=== PATIENT | female | born 1955 | race Caucasian/White ===

== ENCOUNTER → 2017-08-17 07:48 | Outpatient (CLI) | payer BC, SELFPAY ==
--- NOTE | 2017-08-17 07:53 | US_ITS ---
US abdomen limited HISTORY: ITS.REASON: ALCOHOLIC CIRRHOSIS ORDERING PHYSICIAN: Fredi Carrera MD PATIENT AGE: 62 years COMPARISON: None FINDINGS: Liver: Cirrhotic appearance with enlarged left lobe. No focal lesions demonstrated. Common bile duct is normal at 4 mm. Portal vein size is normal at 6 mm. The direction of the blood flow within the portal vein was difficult to visualize but did appear to be hepatopedal. Pancreas: No obvious mass or ductal dilatation. Right kidney: Unremarkable Gallbladder: No stones, wall thickening, pericholecystic fluid, or biliary dilatation. IMPRESSION: Cirrhotic appearing liver otherwise negative right upper quadrant ultrasound
== END ==
PROVIDERS: Family Provider Family Medicine; PCP Family Medicine; Visit Provider Family Medicine
DX: K70.30 Alcoholic cirrhosis of liver without ascites (principal)
CPT/HCPCS: 76705

== ENCOUNTER → 2018-05-25 08:09 | Outpatient (CLI) | payer BC, SELFPAY ==
--- NOTE | 2018-05-25 08:12 | XR_ITS ---
XR knee LT 4V, XR knee RT 4V Comparison: 04/18/2015 study of left and right knee History: Bilateral knee pain symptoms for many years Technique: Weightbearing AP, lateral and Dias views were performed as well as oblique.-Performed at both right and left knee. ===== LEFT KNEE There are no prominent findings. No acute findings. Moderately large patient. Joint space is adequately maintained with only Borderline narrowing medial compartment. The patellofemoral joint relationships appear normal. When compared to 2015 I see no significant new features. Actually on previous 2015 lateral knee question possible very minor both of lucency along posterior/superior patella which could reflect some minor subchondral cystic or minor osteochondral irregularity at posterior patella, particularly if there is pain patellofemoral joint. No joint effusion. Bones well mineralized. ----IMPRESSION Left knee overall intact with joint space well maintained Only some questionable relative lucency along the posterior superior patella., Question could reflect some minor degenerative changes or subtle osteochondral irregularities posterior patella. ==== RIGHT KNEE no acute findings. No fracture. No joint effusion Only question borderline narrowing at medial compartment compared to the lateral compartment on the standing frontal views.. Also Initially that there may be some very slight lateral position of tibia relative to femur on AP view but I on further review I believe this is likely due to slight rotation as it is not seen on other views. Normal patellofemoral relationships with very early sharp & marginal spur at lateral/and superior margin of patella but may reflect some minor degenerative changes but unimpressive. IMPRESSION Right knee intact, noting only borderline narrowing at the medial compartment on weightbearing views.. . No joint effusion Other minor comments in text
--- NOTE | 2018-05-25 09:58 | XR_ITS ---
XR hip RT 2-3V w/pelvis Ordering Physician: Charles Lott MD Patient Age: 63 years: Female HISTORY: ITS.REASON: right hip pain TECHNIQUE: AP frog-leg view right hip along with AP pelvis COMPARISON :. CT abdomen from 2013 utilized for comparison FINDINGS . Right hip appears normal. The joint space well maintained. Femoral head and neck appear normal contour and density. AP pelvis shows normal appearance at the osseous pelvis with no fracture or acute findings. Symmetrical appearance of the hips. SI joints unremarkable. IMPRESSION: ---- Negative right hip. Negative AP pelvis.
== END ==
PROVIDERS: PCP Family Medicine; Visit Provider Orthopaedic Surgery
DX: M25.561 Pain in right knee (principal); M25.562 Pain in left knee; M25.551 Pain in right hip
CPT/HCPCS: 73502; 73564

== ENCOUNTER 2019-03-24 10:00 | Outpatient (RCR) | payer BC, SELFPAY ==
--- NOTE | 2019-02-15 13:51 | HMH.PTOPWND ---
Rehab Outpt Wound Evaluation Rehab OP Wound Evaluation Start: 02/15/19 13:02 Freq: Status: Active Protocol: Document 02/15/19 13:42 GERMÁN (Rec: 02/15/19 13:51 PHORNE [id number]) Electronically Signed By Salo Garay, PT 02/15/19 13:42 Subjective/History History History Pt is 63 yowf who presents with right posterior, lateral calf wound ~ 1 mo S/P removal of a mole with failed primary intention closure. She reports her sutures were rmoved 10 days after the mole was removed and her wound formed a scab. However, once the scab came off her wound had remained open and has not continued to heal as it should . She has hx of cirrhosis of the liver, hypothyroid, and seasonal allergies. She has been cleasning the wound daily and dressing with petroleum gauze and non-adherent pad as instructed. Subjective Subjective Pt reports no c/o pain, but is tender to palpation in the maximo-wound area. Wound Eval Wound Right Posterior Lateral Calf Wound Type mole removal Is This a Chronic Wound Yes Wound Length (cm) 2.0 Wound Width (cm) 1.2 Wound Bed Appearance Beefy Red,Yellow Percentage Granulated (%) 50 Percentage of Slough (%) 50 Wound Margins Description Well Defined Surrounding Tissue Appearance [place] Edema Type Non-Pitting Edema Degree 1+ Query Text:1+ Trace, Barely Detectable, Rebound 15-30 seconds 2+ Moderate, Slight Indentation, Rebound 10-20 seconds 3+ Deep, Deeper Indentation, Rebound > 30 seconds 4+ Very Deep, Rebound > 60 seconds Drainage Description Serous Drainage Amount Small Wound Topical Solution/Irrigant Saline Irrigant Primary Dressing Silver Dressing Comment opticell Ag Wound Secondary Dressing Type Composite Comment optifoam gentle with border Wound Debridement Method Forceps,Gauze Wound Debridement Amount of Tissue Minimal Removed Wound Debridement Result Healthy Tissue Revealed Dressing Change Patient Tolerance Tolerated Well Wound Problems/I
== END 2019-03-24 10:05 | disposition home or self-care (01) ==
LOC: PT 10:00
PROVIDERS: Visit Provider Emergency Medicine
DX: T81.89XA Other complications of procedures, not elsewhere classified, initial encounter (principal); M79.661 Pain in right lower leg
CPT/HCPCS: 97162; 97597

== ENCOUNTER → 2020-03-15 14:58 | Outpatient (CLI) | payer BC, SELFPAY ==
--- NOTE | 2020-03-15 15:02 | XR_ITS ---
PROCEDURE: XR HAND RT MIN 3V CLINICAL INDICATION: PAIN IN R FINGERS COMPARISON: No exams were available for comparison FINDINGS: No fracture or dislocation. No lytic or blastic change. There is normal mineralization. There are osteoarthritic changes at the 1st metacarpal-carpal junction and at the DIP joint of the 2nd finger. There is a small marginal erosive area along the distal and radial aspect of the proximal phalanx of the 3rd digit. Other findings:None. IMPRESSION: 1. Mild osteoarthritic change. 2. Small lucency at the distal and radial aspect of the proximal phalanx of the 3rd digit which could represent a marginal erosion from erosive arthritic change. Dictated b Madhu Banks MD 03/15/2020 15:45 Madhu Banks MD in [place] 03/15/2020 15:45
== END ==
PROVIDERS: PCP Family Medicine; Visit Provider Family Medicine
DX: M79.644 Pain in right finger(s) (principal)
CPT/HCPCS: 73130

== ENCOUNTER → 2020-05-28 11:15 | Outpatient (CLI) | payer BC, SELFPAY ==
--- NOTE | 2020-05-28 11:37 | ECG_ITS ---
APPROVED REPORT Exam: Resting ECG HR:65 bpm ECG Measurements Heart Rate 65 AXES DC 148 P 14 QRSd 94 QRS -7 QT 398 T 2 QTc 413 Conclusion Normal sinus rhythm Normal ECG Electronically signed by : Cruz Jordan, 06/10/2020 16:38:52
[2020-05-28 11:59] LABS: Basophils % 0.5 % (0.1-2.0); Eosinophils # 0.2 K/mm3 (0.0-0.4); Eosinophils % 2.5 % (0.1-12.0); Hematocrit 41.6 % (37.0-47.0); Hemoglobin 13.7 g/dL (12.2-16.2); Lymphocytes # 1.6 K/mm3 (0.7-4.5); Lymphocytes % 18.7 % (10-50); Mean Corpuscular Hemoglobin 31.7 pg (27.0-31.2); Mean Corpuscular Volume 95.9 fl (81-99); Mean Platelet Volume 7.9 fl (7.4-10.4); Monocytes # 0.4 K/mm3 (0.1-1.0); Monocytes % 5.4 % (1.7-9.3); Neutrophils % 72.8 % (37.0-80.0); Platelet Count 219 K/mm3 (142-424); Red Blood Count 4.33 M/mm3 (4.20-5.40); Red Cell Distribution Width 14.2 % (11.5-17.5); White Blood Count 8.3 K/mm3 (4.8-10.8)
[2020-05-28 12:35] LABS: Chloride 106 mmol/L (98-107); Sodium 139 mmol/L (136-145)
[2020-05-28 12:38] LABS: Blood Urea Nitrogen 11 mg/dl (7-17); Calcium 9.6 mg/dl (8.4-10.2); Carbon Dioxide 24 mmol/L (22.0-30.0); Estimated Glomerular Filt Rate 85 ml/min (>60); GFR (African American) 102 ML/MIN (>60); Glucose 87 mg/dl (74-100)
[2020-05-28 14:12] LABS: Coronavirus 19 IgG Antibody Negative (Negative); Coronavirus 19 IgM Antibody Negative (Negative)
[2020-05-29 10:42] LABS: Cancer Antigen (CA) 125 39.9 U/mL (0.0-38.1)
== END ==
PROVIDERS: Visit Provider Nurse Practitioner Obstetrics & Gynecology
DX: Z01.818 Encounter for other preprocedural examination (principal); N95.0 Postmenopausal bleeding
CPT/HCPCS: 36415; 80048; 85025; 86316; 86328; 93005

== ENCOUNTER 2020-05-29 09:21 | Day surgery (SDC) | payer BC, SELFPAY ==
[2020-05-28 15:31] VITALS: BMI 39.1
[2020-05-29] VITALS (11 sets, daily range): BP systolic 126–150; BP diastolic 56–82; PULSE 65–94; RESP 12–19; TEMP 36.2–43; O2SAT 94–98
--- NOTE | 2020-05-29 12:32 | HMH.ANESCL ---
[facility] Anesthesia Checklist - Structural Data Admitted From: Home Planned Operative Procedure/s: d/c hyst myosure Consent for Planned Operative Procedure(s) Verified: Yes - Additional verifications Anesthesia Reactions: No Hx Blood Transfusions: No Blood Transfusion Reaction: No - Airway Assessment C-Spine Mobility Assessed: Yes TMJ Mobility Assessed: Yes Dentition: Partials - Neurological Assessment Level of Consciousness: Awake, Alert, Appropriate - Anesthesia Plan Anesthesia Risk discussed: Yes Anesthesia Plan: Verified ASA Class: II Anesthesia Type: General [facility] History I have reviewed the patient's past medical history: Yes Medical History: Denies:: Anxiety, Cancer, Diabetes Mellitus Type 1, Diabetes Mellitus Type 2, Internal Pacemaker, MRSA, Seizures *Have you ever received a pneumonia vaccine?: No *Have you received a flu vaccine this season?: No Other Medical History: Reports: Arthritis, Hypothyroidism, Liver Disease. Denies: Blood Transfusion Reaction Anesthesia experience/problems:: none Laterality Cases: Bilateral: Cataract Other Surgeries: Yes: Colonoscopy, . No: Pacemaker Amputation: No Fractures: Yes - *Social History Last grade of school completed: High school graduate Smoking Status: Former smoker Smoking End Date: 1996 Alcohol Intake: never Alcohol Intake Frequency:: other Substance Use Type: denies use *Occupational Status:: retired Housing: house Household Members: spouse *Travel in the last 8 weeks: None - Psychiatric History Pschychiatric History:: Denies:: Anxiety Family Hx:: Thyroid Disorder
--- NOTE | 2020-05-29 14:42 | P.OP_ITS ---
Date of procedure: 05/29/20 Pre-op Diagnosis:: Postmenopausal bleeding Post-op Diagnosis:: Postmenopausal bleeding Procedure performed:: Hysteroscopy with MyoSure Surgeon:: Daryn Knott MD [employer]ION [employer] SET UP WORKER:: Jame Rico Anesthesia: LMA Estimated blood loss (mL): 100 Clinical Note:: She is a 65-year-old lady who complains of bleeding. We had done an endometrial biopsy that showed disordered proliferative growth. She has been on Prometrium for the last month and continued to have heavy bleeding. Ultrasound showed that her endometrium was still thickened at about 2 cm. As result of that we elected perform a hysteroscopy and MyoSure. We wanted to get a good sample of the endometrium to rule out endometrial carcinoma. Operative findings:: She had an anteverted uterus that had a lush endometrium. At the fundus of the uterus it looked like the endometrium was adherent both anterior and posteriorly with possibly a band of adhesions. They were very soft and they were easily taken down with the MyoSure device. Tubal ostia were both seen and appeared normal. The endometrium itself was somewhat erythematous. Operative note:: She was taken the operating room where LMA anesthesia was found be adequate. She was prepped and draped in normal sterile fashion in the lithotomy position. A weighted speculum was placed in the vagina and the anterior lip of the cervix was grasped with a tenaculum. Lopez dilators were used to dilate the cervix to approximately 6 mm. I then inserted the MyoSure hysteroscope into the uterine cavity. The findings were as previously dictated. We then use the MyoSure to take down the adhesions at the fundus. There seem to be some holes in the endometrium possibly consistent with adhesions anterior to posteriorly. These were easily taken down with the MyoSure device. We retrieved a significant amount of tissue with the MyoSure device. I attempted to sample the entire endometrial cavity. At the end of the case the endometrium appeared normal and we could see both tubal ostia easily. The amount of fluid used was approximately 3500 cc. There was an 800 cc deficit. I injected 20 cc of 0.25% ropivacaine at the 3:00, 5:00, 7:00, and 9:00 positions of the cervix. She tolerated the procedure well and was taken to the recovery room in excellent condition. All sponge, instrument and needle counts were correct. The estimated blood loss was approximately 100 cc. Condition: stable Disposition: PACU Specimens:: Endometrial curettings Complications:: None
--- NOTE | 2020-05-29 14:48 | HMH.ANESI ---
[facility] Anesthesia Record Part I Intake, IV Amount: 500 Estimated blood loss (mL): 100 Urine output (mL): 0 Blood Products used (#): none Blood Pressure: 141/62 SaO2: 95 Pulse Rate: 94 Respiratory Rate: 16 Temperature: 97.1 F Patient is:: Awake, Stable Stable to PACU at:: 14:45
--- NOTE | 2020-05-29 17:59 | HMH.ANESII ---
[facility] Anesthesia Record Part II Discharge Time: 15:15 Destination: Surgical Day Care (OP Surgery) PACU nurse assessment reviewed?: Yes Patient Condition:: Good Anesthesia Complications:: None Swallowing reflex intact?: Yes Cyanosis?: No Blood Pressure: 126/72 Pulse Rate: 69 Temperature: 97.8 F Mental Status: Alert & Oriented Pain level:: 0 Nausea and/or vomitting:: None Intake, IV Amount: 0
== END 2020-05-29 15:53 | disposition home or self-care (01) ==
LOC: OR 09:22
PROVIDERS: PCP Family Medicine; Visit Provider Nurse Practitioner Obstetrics & Gynecology
PROC: (CPT 58563; principal; 2020-05-29 11:00)
DX: N93.9 Abnormal uterine and vaginal bleeding, unspecified (principal); N85.4 Malposition of uterus; N85.6 Intrauterine synechiae; M19.90 Unspecified osteoarthritis, unspecified site; E03.9 Hypothyroidism, unspecified; K76.9 Liver disease, unspecified
CPT/HCPCS: 58563; 96374; J2405

== ENCOUNTER → 2021-06-19 15:39 | Outpatient (CLI) | payer BC, SELFPAY ==
--- NOTE | 2021-06-19 15:42 | MM_ITS ---
PROCEDURE: MM DIG MAMM BI DX W/CAD Digital Breast Tomosynthesis Included CLINICAL INDICATION: SCREENING COMPARISON: MG DMSB DIGITAL MAMM-SCREEN BILATERAL from 06/23/2011 MG DMSB DIG MAMM-SCREEN DAPHNE from 03/21/2015 MG DMSB DIG MAMM-SCREEN DAPHNE W/CAD from 04/30/2017 US US BREAST RT COMPLETE from 06/19/2021 TECHNIQUE: Diagnostic mammogram performed along with right breast ultrasound for evaluation of a palpable nodule in the right breast at the 10 o'clock region central FINDINGS: The breasts are heterogeneously dense which may obscure small masses. Right breast: Small nodes are present in the axilla. A 2 x 1.5 cm ill-defined mass is present in the 9-10 o'clock region of the right breast in the central 1/3 of the lateral aspect of the right breast. This has developed since the previous study. There is a cluster of microcalcifications also noted in the central aspect of the right breast slightly lateral in the middle 1/3 of the breast. These calcifications have developed since the previous exam and are slightly suspicious. An additional cluster of calcifications are present in the inferior aspect of the right breast centrally. A well-circumscribed nodule is present in the deep aspect of the right breast seen only on the CC view measuring 1.6 by 1.3 cm. Right breast ultrasound: 2.3 x 1.6 cm hypoechoic masses present in the 10 o'clock region of the right breast corresponding to the new mammographic abnormality. This is the area of patient's palpable concern. The margins are somewhat irregular. The lesion is hypoechoic. This however could be related to the ultrasound technique. There does appear to be some enhanced through transmission of sound. The edges are not well-defined. The lesion is wider than tall. In the 6 o'clock region of the right breast there is an additional hypoechoic nodule which appears solid with some enhanced through transmission of sound. This nodule is fairly well-circumscribed. There are few small cyst in the right breast. Left breast: No malignant appearing mass or malignant-appearing microcalcification. There is some benign-appearing calcifications noted. IMPRESSION: Numerous abnormalities are present involving the right breast. Suspicious nodule at 10 o'clock near the nipple corresponding to the palpable abnormality. Suggest ultrasound-guided FNA to confirm if cystic or solid. If solid mammotome biopsy should be performed. 1.6 cm solid nodule in the deep inferior right breast at 6 o'clock. This may be difficult to do mammotome biopsy due to the location. At least core biopsy is suggested. There are 2 suspicious clusters of calcification in the right breast for which stereotactic biopsy is suggested. Recommend performing ultrasound-guided biopsies initially to be followed by stereotactic biopsies on a separate day. BI-RAD Category: 4 Suspicious Abnormality-Biopsy Considered FOLLOW-UP: BIO Biopsy Recommended (A letter has been sent to the patient regarding results of the study.) Dictated by: Madhu Banks MD 06/19/2021 17:04 Madhu Banks MD in [place] 06/19/2021 17:04
== END ==
PROVIDERS: PCP Family Medicine; Visit Provider Family Medicine
DX: Z12.31 Encounter for screening mammogram for malignant neoplasm of breast (principal)
CPT/HCPCS: 76641; 77062; 77066; G0279

== ENCOUNTER → 2021-07-02 09:48 | Outpatient (CLI) | payer BC, SELFPAY ==
--- NOTE | 2021-07-02 | MM_ITS ---
PROCEDURE: ULTRASOUND MAMMOTOME BIOPSY RIGHT BREAST US FNA BREAST CLINICAL INDICATION: ABN MAMM Two right breast nodules COMPARISON: MG MM DIG MAMM BI DX W/CAD from 06/19/2021 US US BREAST RT COMPLETE from 06/19/2021 MG MM CLIP PLACEMENT RT from 07/02/2021 FINDINGS: Oral sedation utilized with 1 mg alprazolam and 5 mg hydrocodone/325 mg acetaminophen by mouth. Informed consent was obtained and time-out procedure performed. Under aseptic conditions and local anesthesia with 1 percent buffered lidocaine and deeper anesthesia with lidocaine mixed with epinephrine using ultrasound guidance, 1st a FNA was performed of the 10 o'clock nodule without aspiration. Then, a 9 gauge mammotome biopsy needle was inserted into the nodule at 10 o'clock and multiple core biopsies were obtained. A clip was then placed. Patient tolerated the procedure well without evidence mediate complication. Using ultrasound guidance under aseptic technique and local anesthesia with 1 percent buffered lidocaine FNA was attempted of the 6 o'clock region without aspirate obtained. 14 gauge core biopsies x2 were obtained of the nodule at 6 o'clock. The patient tolerated the procedure well without evidence mediate complication. Cytology: FNA of the 10 o'clock lesion, malignant Pathology: 10 o'clock lesion: Invasive ductal carcinoma. Pathology 6 o'clock lesion: Suggestive of epidermal inclusion cyst. Mammo clip placement: Post biopsy changes are present with the clip along the anterior aspect of the 10 o'clock mass. Suspicious microcalcifications are once again noted as previously described. Mildly prominent nodes right axilla. IMPRESSION: Successful and uneventful ultrasound-guided mammotome biopsy of the 10 o'clock lesion of the right breast which demonstrates invasive ductal carcinoma. The nodule at 6 o'clock is suggestive of an epidermal inclusion cyst. Surgical consult suggested. There are 2 clusters of microcalcification in the right breast as previously described for which stereotactic biopsy is also recommended. This should be performed before surgical planning. Dictated by: Madhu Banks MD 07/07/2021 09:45 Madhu Banks MD in [place] 07/07/2021 09:45
== END ==
PROVIDERS: PCP Family Medicine; Visit Provider Family Medicine
DX: R92.8 Other abnormal and inconclusive findings on diagnostic imaging of breast (principal)
CPT/HCPCS: 10005; 19083; 77065; C2618

== ENCOUNTER → 2022-11-10 12:49 | Outpatient (CLI) | payer MEDICARE, BC, SELFPAY ==
--- NOTE | 2022-11-10 | CA_ITS ---
FINAL REPORT TECHNIQUE: Ultrasound images of the deep venous system were obtained from the right groin to the calf veins. CLINICAL HISTORY: Rt lower lateral leg pain FINDINGS: The deep venous system is normally compressible. Normal flow is identified. IMPRESSION: No evidence of right lower extremity DVT. Reviewed, Interpreted and Dictated by Anthony Newman MD Transcribed by Yonatan Jackson Authenticated and [facility]
== END ==
PROVIDERS: PCP Family Medicine; Visit Provider Family Medicine
DX: M79.604 Pain in right leg (principal)
CPT/HCPCS: 93971

== ENCOUNTER 2023-12-23 11:30 | Outpatient (CLI) | payer MEDICARE, BC, SELFPAY ==
--- NOTE | 2023-12-23 11:34 | XR_ITS ---
FINAL REPORT CLINICAL HISTORY: 3 WEEKS OF PAIN IN SWELLING COMPARISON: None FINDINGS: Three views of the right knee reveal no evidence of fracture or dislocation. The bony alignment is normal. Mild degenerative changes present. There is a small joint effusion. No localized soft tissue abnormality is identified. IMPRESSION: Mild degenerative change of the knee, with a small joint effusion. Reviewed, Interpreted and Dictated by Avery Weinberg III, MD Transcribed by Mai Rabago Authenticated and [facility]
== END 2023-12-23 23:59 | disposition home or self-care (01) ==
LOC: RAD 11:31
PROVIDERS: PCP Family Medicine; Visit Provider Family Medicine
DX: M25.561 Pain in right knee (principal)
CPT/HCPCS: 73562

== ENCOUNTER 2024-04-03 07:17 | Outpatient (CLI) | payer MEDICARE, BC, SELFPAY ==
--- NOTE | 2024-04-03 07:30 | CT_ITS ---
FINAL REPORT TECHNIQUE: Thin section axial CT images of the right knee with coronal and sagittal reformats were performed. This study was performed with techniques to keep radiation doses as low as reasonably achievable (ALARA). Individualized dose reduction techniques using automated exposure control or adjustment of mA and/or kV according to the patient''s size were employed. CLINICAL HISTORY: PRe op right tka FINDINGS: There are no fractures. There is moderate medial compartment joint space narrowing. Osteophytes are seen at the medial joint margin and at the undersurface of the patella. There are no masses or fluid collections. There are no soft tissue abnormalities. IMPRESSION: Mild to moderate degenerative change without acute bony abnormality. Reviewed, Interpreted and Dictated by Anthony Newman MD Transcribed by Toshia Lamas Authenticated and [facility]
== END 2024-04-03 23:59 | disposition home or self-care (01) ==
PROVIDERS: PCP Family Medicine; Visit Provider Orthopaedic Surgery
DX: M17.11 Unilateral primary osteoarthritis, right knee (principal)
CPT/HCPCS: 73700

== ENCOUNTER 2024-05-09 12:35 | Outpatient (CLI) | payer MEDICARE, BC, SELFPAY ==
--- NOTE | 2024-05-09 12:54 | ECG_ITS ---
APPROVED REPORT Exam: Resting ECG HR:81 bpm ECG Measurements Heart Rate 81 AXES WV 163 P 22 QRSd 91 QRS -14 QT 381 T 0 QTc 419 Conclusion SINUS RHYTHM MINIMAL VOLTAGE CRITERIA FOR LVH, CONSIDER NORMAL VARIANT [MEETS CRITERIA IN ONE OF: R(aVL), S(V1), R(V5), R(V5/V6)+S(V1)] BORDERLINE ECG UNCONFIRMED REPORT Electronically signed by : Lex Junior MD 05/09/2024 20:48:09
--- NOTE | 2024-05-09 13:13 | XR_ITS ---
FINAL REPORT TECHNIQUE: Chest PA & Lateral CLINICAL HISTORY: Nonspecific cough, former smoker, hx of breast ca COMPARISON: None FINDINGS: 2 views of the chest were performed. The heart size is normal. The mediastinum is within normal limits. There is linear density in the left lung base probably due to scarring or atelectasis. The right lung is clear. There are no pleural effusions. There is no pneumothorax. The bony thorax appears intact. IMPRESSION: Probable scarring or atelectasis left lung base. Reviewed, Interpreted and Dictated by Anthony Newman MD Transcribed by June Brooke Authenticated and [facility]
[2024-05-09 13:26] LABS: Basophils # 0.1 K/mm3 (0-0.2); Basophils % 0.7 % (0.1-2.0); Eosinophils # 0.2 K/mm3 (0.0-0.4); Eosinophils % 2.5 % (0.1-12.0); Hematocrit 39.2 % (37.0-47.0); Hemoglobin 12.7 g/dL (12.2-16.2); Lymphocytes # 1.7 K/mm3 (0.7-4.5); Lymphocytes % 25.4 % (10-50); Mean Corpuscular HGB Conc 32.3 g/dL (31.8-35.4); Mean Corpuscular Hemoglobin 34.4 pg (27.0-31.2); Mean Corpuscular Volume 106.5 fl (81-99); Mean Platelet Volume 8.4 fl (7.4-10.4); Monocytes # 0.4 K/mm3 (0.1-1.0); Monocytes % 5.4 % (1.7-9.3); Neutrophils # 4.5 K/mm3 (1.8-7.8); Platelet Count 135 K/mm3 (142-424); Red Blood Count 3.68 M/mm3 (4.20-5.40); Red Cell Distribution Width 14.3 % (11.5-17.5); White Blood Count 6.8 K/mm3 (4.8-10.8)
[2024-05-09 13:36] LABS: Albumin Level 3.9 g/dl (3.5-5.0); Chloride 104 mmol/L (98-107); Potassium 3.3 mmoL/L (3.5-5.1); Sodium 140 mmol/L (136-145)
[2024-05-09 13:38] LABS: Blood Urea Nitrogen 11 mg/dl (7-17); Estimated Glomerular Filt Rate 72 ml/min (>60); GFR (African American) 87 ML/MIN (>60)
[2024-05-09 13:39] LABS: Alanine Aminotransferase 20 U/L (12-78); Albumin/Globulin Ratio 1.1 (1.1-1.8); Alkaline Phosphatase 90 U/L (38-126); Anion Gap 11.3 mEq/L (5-15); Aspartate Amino Transferase 24 U/L (14-36); Bilirubin,Total 0.8 mg/dl (0.2-1.3); Calcium 9.2 mg/dl (8.4-10.2); Carbon Dioxide 28 mmol/L (22.0-30.0); Globulin 3.6 g/dL (1.3-3.2); Glucose 118 mg/dl (74-100); Total Protein,Serum 7.5 g/dl (6.3-8.2)
== END 2024-05-09 23:59 | disposition home or self-care (01) ==
LOC: PREOP 12:37
PROVIDERS: PCP Family Medicine; Visit Provider Orthopaedic Surgery
DX: M17.11 Unilateral primary osteoarthritis, right knee (principal); Z01.818 Encounter for other preprocedural examination
CPT/HCPCS: 71046; 80053; 85025; 93005

== ENCOUNTER 2024-05-17 12:23 | Observation (INO) | payer MEDICARE, BC, SELFPAY ==
[2024-05-16 11:24] VITALS: BMI 34.7
[2024-05-17] VITALS (20 sets, daily range): BP systolic 95–121; BP diastolic 32–66; PULSE 66–101; RESP 12–18; TEMP 36.4–37.2; O2SAT 93–96; BMI 34.7
[2024-05-17] MEDS: LACTATED RINGERS 1000ML 1,000 ML 100 ML IV ×2 (08:00→18:00)
[2024-05-17] MEDS: CEFAZOLIN SODIUM 2 GM in 0.9 % SODIUM CHLORIDE 100 ML IV (09:00)
--- NOTE | 2024-05-17 09:30 | EXP.ANES.CKL ---
[facility] Disclaimer: The information contained in this section may have been updated after the patient was seen, as this information can be updated by other users. Medical History Urinary tract infection Asthma Menopause Osteoarthritis Hypothyroid History of cataract Breast cancer Surgical History H/O section H/O total hysterectomy H/O eye surgery H/O mastectomy Family History Sister Throat cancer Social History Smoking Status: Former smoker alcohol intake: former substance use type: denies use current occupational status: retired Travel in the last 8 weeks: None household members: spouse housing: house current occupational exposures/hazards: No caffeine: Yes [facility] Anesthesia Checklist Patient Identification Patient Identification: Verbal (Name & ) Structural Data Admitted From: Home Planned Operative Procedure/s: r total knee NPO Status Verified Time NPO: 00:00 Additional verifications Anesthesia Reactions: No Hx Blood Transfusions: No Blood Transfusion Reaction: No Airway Assessment Mallampati Score:: Class II C-Spine Mobility Assessed: Yes TMJ Mobility Assessed: Yes Dentition: Dentures-good fit Neurological Assessment Level of Consciousness: Awake, Alert and Appropriate Anesthesia Plan Anesthesia Risk discussed: Yes Anesthesia Plan: Verified ASA Class: II Anesthesia Type: MAC w/Spinal
[2024-05-17] MEDS: SODIUM CHLORIDE 0.9% IV ×2 (09:35→12:00)
[2024-05-17] MEDS: TRANEXAMIC ACID IV ×2 (09:35→12:00)
--- NOTE | 2024-05-17 11:55 | EXP.OP.NOTE ---
Date of procedure: 05/17/24 Pre-op Diagnosis:: End-stage osteoarthritis right knee Post-op Diagnosis:: Same Procedure performed:: Right total knee arthroplasty Surgeon:: Chin Mrar DO Deputy Manager(s):: Sy VIEIRA FINANCIAL COORDINATOR:: Marko De La Garza Anesthesia: regional and spinal Estimated blood loss (mL): 25 Clinical Note:: Implants Medacta size 3 femur size 3 tibia 10 mm poly size 1 patella, cemented Operative findings:: End-stage osteoarthritis right knee Operative note:: Patient was identified preoperatively. Right knee marked with yes and my initials. Patient then taken to the operating room given spinal anesthesia and then placed upon operating bed after Ybarra catheter was placed. Right lower extremity was prepped and draped normal sterile fashion. Once prepped and draped final operative timeout performed to identify proper patient procedure and extremity. Everyone involved the case agreed. No counter indications beginning. Did receive preoperative antibiotics. Marking pen was used to girish plan incision midline in the knee. Esmarch was used to exsanguinate the extremity pneumatic tourniquet inflated to 300 mmHg. Leg was placed in the foot obregon and the knee was flexed. Skin knife was used incise through skin dissection is taken down to identify the capsule of the knee. Standard medial parapatellar approach was utilized the patella was everted the knee was flexed. The anterior horn of the medial lateral meniscus sacrificed ACL sacrificed. Exposure of the femur was performed by placing retractors with a Hohmann retractor medial and laterally the femoral guide from the Medacta my knee set that was preformed based on CT scan was selected and the distal femoral cutting guide was pinned in the place. The distal femoral cutting osteotomy was performed and gave a nice flat cut the distal femur. The holes from the guide were predrilled and the 4-in-1 cutting block was placed followed by screws in the 4-in-1 cutting block. Anterior and posterior cuts were made anterior posterior chamfer cuts were made bone was removed femoral trial impacted into place with good fit. This was a size 3 femoral trial. Attention was then brought to the tibia. The tibia was subluxed anteriorly the single prong ACL retractor placed retractors medial and lateral placed and the Medacta tibia cutting guide was selected using the model the cartilage was removed to allow for placement of the custom cutting guide directly to the bone. This was then pinned into place and the tibia osteotomy was then performed. The tibial trial was then selected and pinned into place and proper alignment a initial drill followed by the punch was then initiated for final preparation of the tibia. The tibial tray was left in place femoral trial was replaced and the size 10 poly was selected and put into place knee was taken through flexion extension found to be stable Tensions then brought to the patella where the patella cutting guide was utilized for flat osteotomy of the patella lug holes were drilled and a size 1 implant was trialed With the trials in place and good stable range of motion of the knee the trials were removed copious irrigation of the wound performed final implants opened on the back table and cement was mixed. And then I cemented in the tibial component followed by the poly and the femoral component and the patella all excess cement removed the knee was brought in extension allow for the cement to harden. Once this was performed the tourniquet was deflated hemostasis was obtained with electrocautery irrigation repeated. The capsule was closed with a running #1 strata fix suture. Deep layers closed with 0 Vicryl subcutaneous 2-0 Vicryl surgical clips in the skin for closure. Sterile dressing placed from toe to thigh patient waken anesthesia taken recovery stable condition. Condition: stable Disposition: PACU Complications:: None apparent
--- NOTE | 2024-05-17 11:55 | EXP.ANES.I ---
[facility] Anesthesia Record Part I Anesthesia Record I Intake, IV Amount: 1,200 Hydration: Adequate Estimated blood loss (mL): 0 Urine output (mL): 200 Blood Pressure: 98/52 SaO2: 94 Pulse Rate: 92 Airway Patency: Patent Respiratory Rate: 12 Temperature: 97.5 F Patient is:: Awake and Stable Stable to PACU at:: 11:50
--- NOTE | 2024-05-17 12:11 | XR_ITS ---
PROCEDURE INFORMATION: Exam: XR Right Knee Exam date and time: 05/17/2024 4:22 PM Age: 69 years old Clinical indication: Device placement; Joint replacement hardware; Additional info: S/P right total knee TECHNIQUE: Imaging protocol: Radiologic exam of the right knee. Views: 1 or 2 views. COMPARISON: CT KNEE RT WO CON 04/03/2024 7:42 AM FINDINGS: Bones/joints: Right knee prosthesis appears normally aligned. No acute fracture. Osseous alignment appears normal. Soft tissues: Anterior soft tissue swelling and gas compatible with recent surgery. Anterior skin huy noted. IMPRESSION: No unexpected postoperative changes.
[2024-05-17] MEDS: OXYCODONE 5MG W/APAP 325MG TABLET 1 EACH PO ×2 (13:27→18:49)
[2024-05-17] MEDS: KETOROLAC 30MG/ML VIAL 15 MG IV ×2 (14:48→21:02)
[2024-05-17] MEDS: CEFAZOLIN SODIUM 1 GM in 0.9 % SODIUM CHLORIDE 50 ML IV ×2 (16:17→22:41)
--- NOTE | 2024-05-17 17:31 | PC.NURSE ---
pt currently resting supine in bed with legs extended flat. a&ox4. pt had total rt knee replacement surgery today and shannen bandage is applied to the lower extremity. dressing c/d/i. ice packs applied for comfort. pt has been hypotensive since returning from PACU (MAP >65), but vss. post op vitals to be continued into next shift. pt is on RA and tolerating well with sats >90%. purewick is in place. pt has been given pain meds per oct and is eagerly awaiting the next dose. pt aware of medication schedule. next dose time written on board in room. tolerating po intake well, with no complaints of n/v. pt is able to wiggle toes on leg where block was applied for surgery. pt has not been out of bed yet due to numbness in lower extremities. no complaints at this time. call light in reach, bed in low and locked position.
[2024-05-17] MEDS: ASPIRIN 325MG TABLET 325 MG PO (20:50)
[2024-05-18] VITALS: BP 123/61; PULSE 82; RESP 18; TEMP 36.8; O2SAT 94
[2024-05-18] MEDS: OXYCODONE 5MG W/APAP 325MG TABLET 1 EACH PO ×3 (00:23→12:20)
[2024-05-18] MEDS: KETOROLAC 30MG/ML VIAL 15 MG IV ×2 (02:46→10:03)
[2024-05-18 04:00] VITALS: BP 128/62; PULSE 82; RESP 18; TEMP 36.6; O2SAT 93; BMI 38.0
--- NOTE | 2024-05-18 05:34 | PC.NURSE ---
Receiving scheduled pain meds which has controlled pain along with PRN Toradol. Polar pack in place. Taking PO fluids well. No c/o nausea.
[2024-05-18] MEDS: LEVOTHYROXINE 25MCG (0.025MG) TAB 25 MCG PO (06:08)
[2024-05-18 07:09] LABS: Chloride 101 mmol/L (98-107); Potassium 4.1 mmoL/L (3.5-5.1); Sodium 133 mmol/L (136-145)
[2024-05-18 07:12] LABS: Anion Gap 9.1 mEq/L (5-15); Blood Urea Nitrogen 11 mg/dl (7-17); Carbon Dioxide 27 mmol/L (22.0-30.0); Creatinine Clearance Estimated 81 mL/min (50-200); Estimated Glomerular Filt Rate 72 ml/min (>60); GFR (African American) 87 ML/MIN (>60)
[2024-05-18 07:13] LABS: Calcium 8.6 mg/dl (8.4-10.2); Glucose 83 mg/dl (74-100)
--- NOTE | 2024-05-18 07:34 | CARE MANAGER ---
Patient has a mobility impairment that cannot be corrected with a cane but there is a potential for ambulation. YAHIR Ingram
[2024-05-18 07:36] LABS: Basophils # 0.1 K/mm3 (0-0.2); Basophils % 0.6 % (0.1-2.0); Eosinophils # 0.3 K/mm3 (0.0-0.4); Eosinophils % 3.4 % (0.1-12.0); Hematocrit 37.3 % (37.0-47.0); Hemoglobin 12.2 g/dL (12.2-16.2); Lymphocytes # 1.2 K/mm3 (0.7-4.5); Lymphocytes % 14.1 % (10-50); Mean Corpuscular HGB Conc 32.6 g/dL (31.8-35.4); Mean Corpuscular Hemoglobin 32.8 pg (27.0-31.2); Mean Corpuscular Volume 100.4 fl (81-99); Monocytes # 0.6 K/mm3 (0.1-1.0); Monocytes % 7.5 % (1.7-9.3); Neutrophils # 6.4 K/mm3 (1.8-7.8); Neutrophils % 74.4 % (37.0-80.0); Platelet Count 116 K/mm3 (142-424); Red Blood Count 3.72 M/mm3 (4.20-5.40); Red Cell Distribution Width 14.3 % (11.5-17.5); White Blood Count 8.6 K/mm3 (4.8-10.8)
[2024-05-18 07:56] VITALS: BP 124/57; PULSE 79; RESP 16; TEMP 36.7; O2SAT 94
[2024-05-18 08:08] LABS: Microscopic,Cath URINE MICROSCOPIC (MICROSCOPIC)
[2024-05-18] MEDS: ASPIRIN 325MG TABLET 325 MG PO (08:09)
[2024-05-18] MEDS: SPIRONOLACTONE 25MG TABLET 50 MG PO (08:10)
[2024-05-18 08:11] LABS: Appearance,Urine/Cath CLOUDY (Clear); Bilirubin,Cath Negative (Negative); Blood, Urine/Cath 2+ (Negative); Color,Urine/Cath YELLOW (Yellow); Glucose,Urine/Cath (UA) Negative (Negative); Ketones,Urine/Cath Negative (Negative); Leukocyte Esterase,Cath 2+ (Negative); Nitrate,Cath Negative (Negative); PH,Urine/Cath 6.5 (5.0-8.5); Protein,Urine/Cath Negative (Negative); Specific Gravity, Urine/Cath <= 1.005 (1.005-1.030); Urobilinogen,Cath 0.2 EU/dl (0.2)
--- NOTE | 2024-05-18 08:15 | HMH.PHAINT1 ---
Pharmacy Intervention Comments: Home medication list verified using list from pharmacy.
[2024-05-18 08:24] LABS: WBC,Urine/Cath Occasional #/hpf (0-3)
[2024-05-18 08:25] LABS: Bacteria,Urine/Cath 3+ /lpf
--- NOTE | 2024-05-18 08:33 | HMH.PTEV ---
Physical Therapy Evaluation Rehab PT IP Evaluation Start: 05/17/24 12:12 Freq: ONCE Status: Active Protocol: Document 05/18/24 08:10 BRIELLE (Rec: 05/18/24 08:32 BRIELLE [id number]) Subjective/History History History Pt is a 69 y/o female who presents to [facility] acute care s/p R TKA. Pt is WBAT. Pt reports she had full knee extension prior to surgery but wasn't able to achieve full bending. Pt lives in a single-story home with family who is available to assist as needed. Prior to surgery, pt was IND with all mobility with intermittent use of a cane. Pt does not own a RW. PT discussed need for RW with CM. Subjective Subjective Pt reports she is no longer numb and has some pain. Pleasantly agreeable to PT mobility assessment. New diagnosis of cancer in past 12 No months? Rehab PT IP Eval Objective Appearance Patient Behavior Appropriate,Cooperative Patient Orientation Person,Situation Difficulty following instructions none Speech Pattern Clear Ambulation Patient Able to Ambulate Yes Ambulation Observation IP General Gait Pattern Observation Antalgic Gait Ambulation Distance (feet) 20 Ambulation Assistive Device Rolling Walker Ambulation Ability Contact Guard/Hand Hold Balance Ability to Arise Able, uses arms to help Sitting Balance Steady, safe Standing Balance Steady, wide stance Dynamic Sitting Balance Ability Good Dynamic Standing Balance Ability Good Transfers Bed Transfer Ability Minimal x 1 (25% assist) Sit to Stand Bed Transfer Ability Contact Guard/Hand Hold Rehab PT IP prob,goals,plan Problems Date of Evaluation: 05/18/24 PT IP Problems Bed Mobility,Transfers,Gait, Balance,Safety Rehab Potential Rehab Potential Good Equipment Needs Assistive Devices Rolling / Wheeled Walker Plan PT Intervention Plan Bed Mobility,Transfers,Gait, Balance,Safety,Therapeutic Exercise Other Intervention Plan 1-2 times PT Plan Frequency Daily Duration LOS Discharge Goals Bed Transfer Ability Supervision/Stand by Sit to Stand Chair Transfer Ability Supervision/Stand by Ambulation Assistive Device Rolling Walker Ambulation Distance (feet) 30 Discharge Plan PT Discharge Plan Initial physical therapy evaluation performed. Patient presents below baseline at this time in functional mobility, transfers, gait, and strength. Pt would benefit from skilled PT while at [facility] to prevent further functional decline and maximize safety with mobility. Pt safe to d/c home when deemed medically necessary d/t current level of mobility, home set-up, and family support. PT recommending outpatient PT services to address deficits. PT provided pt with HEP packet and educated on importance of HEP compliance. Eval Complexity Eval Charge Codes 44811 - Moderate Complexity PHYSICIAN CERTIFICATION: I certify the specified therapy services for Xiomara Mccoy are required, authorized, and reviewed every 30 days.
--- NOTE | 2024-05-18 09:39 | SW/DCPLANNER ---
Addendum entered by Leonor [place] 05/18/24 14:36: [facility] stated that services will start tomorrow for this patient. Addendum entered by Leonor [place] 05/18/24 13:15: [facility] is unable to accept this patient for services. Patient information/order has been faxed to [facility]. Addendum entered by Leonor [place] 05/18/24 11:40: [facility] I will follow up once reviewed. Original Note: I spoke w/ this patient regarding plans at time of discharge. Patient is currently established w/ outpatient PT. Patient stated that she would prefer to return to home w/ home health services at time of discharge. Patient does not have a preference as to which home health agency. I will set up home health services at time of discharge. I have updated Dr Marr regarding discharge plans.
--- NOTE | 2024-05-18 11:49 | EXP.SURG.PN ---
Subjective Narrative: Patient sitting comfortably in chair, denies MORRISON, dizziness, CP, SOB, N/V, calf pain, paresthesias. State she had a good night, and worked with PT today, with success walking. States pain is well controlled with pain meds. Exam Data for Last 24 hours Vital signs and Labs for Last 24 Hours: Temp Pulse Resp BP Pulse Ox O2 Del Method 98.1 F 79 16 124/57 L 94 L Room Air 05/18/24 07:56 05/18/24 07:56 05/18/24 07:56 05/18/24 07:56 05/18/24 07:56 05/18/24 08:21 Laboratory Results - last 24 hr 05/17/24 : Urine Color Yellow, Urine Appearance Cloudy, Urine pH 6.5, Ur Specific [place] <= 1.005, Urine Protein Negative, Urine Glucose (UA) Negative, Urine Ketones Negative, Urine Blood 2+, Urine Nitrate Negative, Urine Bilirubin Negative, Urine Urobilinogen 0.2, Ur Leukocyte Esterase 2+ A, Urine RBC None, Urine WBC Occasional, Ur Squamous Epith Cells None, Urine Bacteria 3+ A 05/18/24 06:09: WBC 8.6, RBC 3.72 L, Hgb 12.2, Hct 37.3, MCV 100.4 H, MCH 32.8 H, MCHC 32.6, RDW 14.3, Plt Count 116 L, MPV 8.0, Neut % (Auto) 74.4, Lymph % (Auto) 14.1, Mclennan % (Auto) 7.5, Eos % (Auto) 3.4, Baso % (Auto) 0.6, Neut # (Auto) 6.4, Lymph # (Auto) 1.2, Mclennan # (Auto) 0.6, Eos # (Auto) 0.3, Baso # (Auto) 0.1, Sodium 133 L, Potassium 4.1, Chloride 101, Carbon Dioxide 27, Anion Gap 9.1, BUN 11, Creatinine 0.80, Estimated Creat Clear 81, Estimated GFR 72, Est GFR ( Amer) 87, Glucose 83, Calcium 8.6 I & O for Last 24 hours: Intake & Output 05/15/24 05/16/24 05/17/24 05/18/24 23:59 23:59 23:59 23:59 Intake Total 1500 / 2141 1121 / 1121 Output Total 1100 / 1100 500 / 500 Balance 400 / 1041 621 / 621 Weight 86.183 kg 86.183 kg 93.758 kg Detailed Lower Extremity Exam Comments: R knee: Dressing C/D/I with ice machine in place. NVID with +2 DP, SILT 1st DWS/PA and +motor EHL/FHL/GS/TA. Calves SNT. Progress Note: A&P Assessment and Plan Assessment and Plan for All Diagnoses:: WBAT to RLE with device PRN ambulation. Reinforce dressing PRN saturation. DVT ppx x 28 days with ASA Pain medications scheduled with Percocet Encourage IS. Encourage PO intake. Stable orthopedically, dc planning with case management.
--- NOTE | 2024-05-18 13:21 | EXP.ANES.II ---
[facility] Anesthesia Record Part II Anesthesia Record Part II Discharge Time: 12:20 Destination: Medical Surgical Department PACU nurse assessment reviewed?: Yes Patient Condition:: Good Anesthesia Complications:: None Swallowing reflex intact?: Yes Airway Patency: Patent Cyanosis?: No Blood Pressure: 105/45 SaO2: 94 Respiratory Rate: 15 Pulse Rate: 76 Temperature: 97.8 F Mental Status: Alert & Oriented Pain level:: 0 Nausea and/or vomitting:: None Intake, IV Amount: 0 Hydration: Adequate
[2024-05-18 13:22] VITALS: BP 105/45; PULSE 76; RESP 15; TEMP 36.6; O2SAT 94
--- NOTE | 2024-05-19 13:48 | SW/DCPLANNER ---
Addendum entered by Leonor Modi 05/19/24 13:49: Patient did have questions regarding bandage on her knee. CM will reach out to Ortho. Original Note: Hospital follow up phone call: patient stated that she is doing well at home. Home health services did start today for this patient. No further questions/concerns at this time.
== END 2024-05-18 14:32 | disposition home health service (06) ==
LOC: 2ND 12:24
PROVIDERS: Admitting Provider Orthopaedic Surgery; PCP Family Medicine; Visit Provider Orthopaedic Surgery
PROC: (CPT 27447; principal; 2024-05-17 09:00)
DX: M17.11 Unilateral primary osteoarthritis, right knee (principal); Z79.899 Other long term (current) drug therapy; Z87.891 Personal history of nicotine dependence; E03.9 Hypothyroidism, unspecified
CPT/HCPCS: 27447; 36415; 73560; 80048; 81001; 85025; 87086; 87088; 87186; 97162; C1776; G0378; J0690; J1885; J2250; J2704; J3010; J7120

== ENCOUNTER 2024-06-01 09:13 | Outpatient (CLI) | payer MEDICARE, BC, SELFPAY ==
--- NOTE | 2024-06-01 09:16 | XR_ITS ---
PROCEDURE INFORMATION: Exam: XR Right Knee Exam date and time: 06/01/2024 9:52 AM Age: 69 years old Clinical indication: Screening exam; F/u tka; Prior surgery; Surgery date: <1 month; Additional info: Right total knee TECHNIQUE: Imaging protocol: Radiologic exam of the right knee. Views: 3 views. COMPARISON: CR XR KNEE RT 2V 05/17/2024 4:22 PM FINDINGS: Tubes, catheters and devices: Surgical huy and soft tissue stranding in the prepatellar soft tissues expected from recent surgery. Bones/joints: There has been a knee arthroplasty with patellar resurfacing. No hardware-related complication noted. Soft tissues: Otherwise unremarkable. IMPRESSION: There has been a knee arthroplasty with patellar resurfacing. No hardware-related complication noted.
== END 2024-06-01 23:59 | disposition home or self-care (01) ==
LOC: RAD 09:14
PROVIDERS: PCP Family Medicine; Visit Provider Orthopaedic Surgery
DX: M17.11 Unilateral primary osteoarthritis, right knee (principal)
CPT/HCPCS: 73562

== ENCOUNTER 2024-07-18 11:00 | Outpatient (RCR) | payer MEDICARE, BC, SELFPAY ==
--- NOTE | 2024-06-07 13:17 | HMH.PTOPEV ---
PT Outpatient Evaluation Rehab PT Outpatient Evaluation Start: 06/07/24 10:40 Freq: Status: Active Protocol: Document 06/07/24 10:43 ROBBIN (Rec: 06/07/24 13:17 ROBBIN [id number]) E-signed By Alexandria Mckeon, PT Outpatient Therapy Subjective History Subjective History Pt is a 69 y/o female who presents to PT 3 weeks s/p R TKA performed on 05/17/24. Pt denies complications following surgery. Pt reports she returned home the next day and received home health physical therapy 2x/week since the surgery and was discharged on Wednesday. Pt reports she was doing exercises such as ankle pumps, heel slides (painful, only able to do 5), quad sets, SLR, LAQ, standing TKE, standing calf raises, and standing hip abduction. Pt reports she has been performing exercises 1x/day since discharge. Pt reports overall she is doing well. Pt states her knee feels stiff in the morning and after prolonged sitting. Pt reports intermittent medial knee pain with prolonged sitting, donning her shoes/socks, prolonged standing and walking . Pt reports she recently transitioned from a rolling walker to a cane early this week without issues or fear of falling. Pt reports she takes prescribed pain medication as needed. Pt reports she is using ice as needed as well. Pt had a R knee radiograph on 06/01/24 with impression of There has been a knee arthroplasty with patellar resurfacing. No hardware- related complication noted. Medical History: Asthma, Menopause, Osteoarthritis, Hypothyroid, History of cataract, Breast cancer - double mastectomy in 2021 New diagnosis of cancer in past 12 No: Breast cancer - double months? mastectomy in 2021 Chief Complaint Pain,Stiff,Swelling,Weakness Symptom Type Ache,Sharp,Dull Symptoms Relieved By Rest/Positioning,Ice,OTC Meds, Prescription Meds Symptoms Aggravated By Standing,Physical Activity, Walking Current Functional Limitations Housework,Standing,Squatting, Walking,Balance Symptom Description Intermittent Level of pain today (0-10) 2 Pain scale - at its best (0-10) 0 Pain scale - at its worst (0-10) 7 Hip/Knee Eval Gait Observation General Gait Pattern Observation Antalgic Gait,Decrease Weight Bear (R) Assistive Device Assistive Devices Straight Cane Palpation Tenderness right Knee Palpation Finding Tenderness Knee Palpation Overall Comment medial joint lines MMT Hip Flexion Strength Grade 4- Good- Hip Abduction Strength Grade 4 Good Hip Adduction Strength Grade 4 Good Hip Extension Strength Grade 4- Good- Knee Extension Strength Grade 4- Good- Knee Flexion Strength Grade 4- Good- ROM Knee Extension Active Range of Motion ( 9 degrees) Knee Extension Passive Range of Motion ( 2 degrees) Knee Flexion Active Range of Motion ( 92 degrees) Knee Flexion Passive Range of Motion ( 105 degrees) Effusion joint effusion knee exam standard right Mid - Patellar Circumerential Measure ( 49 cm) 5cm Proximal Circumference Measure (cm) 54 5cm Distal Circumference Measure (cm) 44 Lower Extremity Functional Index Activities Today, do you or would you have any difficulty at all with: a.Any of your usual work, housework or A little bit of difficulty school activities b. Your usual hobbies, recreational or A little bit of difficulty sporting activities c. Getting into or out of the bath No difficulty d. Walking between rooms No difficulty e. Putting on your shoes or socks No difficulty f. Squatting A little bit of difficulty g. Lifting an object, like a bag of A little bit of difficulty groceries from the floor h. Performing light activities around A little bit of difficulty your home i. Performing heavy activities around A little bit of difficulty your home j. Getting into or out of a car No difficulty k. Walking 2 blocks Moderate difficulty l. Walking a mile Extreme difficulty or unable to perform activity m. Going up or down 10 stairs (about 1 A little bit of difficulty flight of stairs) n. Standing for 1 hour Moderate difficulty o. Sitting for 1 hour Moderate difficulty p. Running on even ground Extreme difficulty or unable to perform activity q. Running on uneven ground Extreme difficulty or unable to perform activity r. Making sharp turns while running fast Moderate difficulty s. Hopping Extreme difficulty or unable to perform activity t. Rolling over in bed A little bit of difficulty LEFI Score Lower Extremity Functional Index Score 48 Outpatient Therapy Assessment Impairments Problems/Impairmments Palpation Tenderness,Impaired Range of Motion,Impaired Strength,Impaired Endurance, Impaired Gait Pattern,Impaired Walking,Impaired Household Care,Impaired Stair Climbing, Impaired Incline Stepping, Impaired Stepping on Uneven Surface,Impaired Squatting, Impaired Balance,Increased Edema,Subjective C/O Pain, Impaired Self Care/Self Management Prognosis Rehab Potential Good Clinical Impression Consistent with Diagnosis Yes Short Term Goals Number of Weeks 3 Increase Range of Motion Yes: Improve R knee AROM to at least 0-100 Decrease Subjective C/O Pain Yes Improve Self Care/Self Management Yes Patient to be Ind w/ HEP Yes Senior Living Goals Number of Weeks 6 Increase Range of Motion Yes: Improve R knee AROM to at least 0-110 Increase Strength Yes: Improve RLE MMT to 4+/5 grossly to assist with function Improve Gait Pattern without Assistive Yes: demonstrate proper gait Device mechanics with LRD to decrease fall risk Improve LEFI Score Yes: Improve score to 58/80 to improve overall QOL Decrease Edema Yes Decrease Subjective C/O Pain Yes: Improve pain at worst to 3-5/10 to improve overall QOL Patient to be Ind w/ Advanced HEP Yes Outpatient Therapy Plan of Care Treatment Plan May Include Therapeutic Exercise Including Home Yes Exercise Program Manual Therapy Techniques Yes Neuromuscular Re-education Yes Therapeutic Activities to Return to Yes Previous Functional/Work Level Gait Training Yes ADL/Self Care Education Yes Thermal Modalities Yes Electrical Stimulation Yes Orthotics/Bracing/Splinting Yes Vasopneumatic Compression Pump Yes Massage Yes Manual Lymphatic Drainage Yes Wound Care Yes Group Therapy for Medicare Yes Eval/Re-Eval Yes Frequency Times per week 2-3 Duration Number of Weeks 4-6 Addendums This patient is a candidate for social No or vocational rehab? Patient/Guardian verbally acknowledges Yes understanding of treatment program and consents to further treatment? Patient/Guardian verbally acknowledges Yes understanding of diagnosis, prognosis and goals for treatment? Eval Complexity PT Charges 75576 - Moderate Complexity Shoulder/Elbow Eval Shoulder Objective Measurements Elbow Objective Measurements PHYSICIAN CERTIFICATION: I certify the specified therapy services for Xiomara Mccoy are required, authorized, and reviewed every 30 days.
--- NOTE | 2024-07-05 11:53 | HMH.RHREAS ---
Rehab Reassessment Rehab OP Re-assessment Start: 06/07/24 10:40 Freq: Status: Active Protocol: Document 07/05/24 11:02 [email or web address] (Rec: 07/05/24 11:53 ROBBIN [id number]) E-signed By Alexandria Mckeon PT Lower Extremity Functional Index Activities Today, do you or would you have any difficulty at all with: a.Any of your usual work, housework or No difficulty school activities b. Your usual hobbies, recreational or No difficulty sporting activities c. Getting into or out of the bath No difficulty d. Walking between rooms No difficulty e. Putting on your shoes or socks No difficulty f. Squatting A little bit of difficulty g. Lifting an object, like a bag of No difficulty groceries from the floor h. Performing light activities around No difficulty your home i. Performing heavy activities around No difficulty your home j. Getting into or out of a car No difficulty k. Walking 2 blocks No difficulty l. Walking a mile A little bit of difficulty m. Going up or down 10 stairs (about 1 No difficulty flight of stairs) n. Standing for 1 hour No difficulty o. Sitting for 1 hour No difficulty p. Running on even ground A little bit of difficulty q. Running on uneven ground A little bit of difficulty r. Making sharp turns while running fast A little bit of difficulty s. Hopping A little bit of difficulty t. Rolling over in bed No difficulty LEFI Score Lower Extremity Functional Index Score 74 Rehab Re-assessment Subjective Subjective Pt reports she feels 100% improved since starting PT. Pt reports she saw her surgeon on 06/29/24 with good report. Pt reports minimal to no knee pain overall. Pt reports she is able to perform all ADLs and iADLs without issues. Pt states she went up/down 4 flights of stairs without issues. Pt reports she is ambulating well without an AD, denies fear of falling. Pt reports compliance with HEP. Objective Objective Notes Gait: mildly antalgic R knee AROM: 0-112 RLE MMT: hip flex 4/5, hip abd /add 4+/5, hip ext 4/5, knee flex 4/5, knee ext 4/5 Assessment Progress Assessment Progressing as Expected Assessment Notes Pt is 7 weeks s/p R TKA performed on 05/17/24. The pt has attended 11 PT treatment sessions consisting of aerobic exercise, R knee ROM, LE stretching/strengthening, gait training, manual therapy, modalities and HEP with good tolerance. Pt demonstrated improved subjective report of pain, LEFS score, knee ROM, strength and gait this date compared to the initial evaluation. Pt continues to demonstrate mildly antalgic gait and LE strength deficits. Overall the pt would continue to benefit from skilled PT to further improve ROM, strength , and gait to improve overall QOL. Patient goals met ST/4 LT/7 Goals Not Met strength, gait, edema Revised Goals n/a Plan Plan Continue initial POC Frequency of Therapy 2x/week Duration of therapy 2 more weeks Time and Billing Re-Eval Time 10 Re-Eval Billing Units 0 Charge for PT reassessment? No Charge for OT reassessment? No PHYSICIAN CERTIFICATION: I certify the specified therapy services for Xiomara Mccoy are required, authorized, and reviewed every 30 days.
== END 2024-07-18 23:59 | disposition home or self-care (01) ==
LOC: PT 11:00
PROVIDERS: PCP Family Medicine; Visit Provider Orthopaedic Surgery
DX: M25.561 Pain in right knee (principal); Z98.890 Other specified postprocedural states
CPT/HCPCS: 97014; 97016; 97110; 97140; 97163; 97530; G0283

== ENCOUNTER 2024-12-18 11:37 | Outpatient (CLI) | payer MEDICARE, BC, SELFPAY ==
--- NOTE | 2024-12-18 11:41 | XR_ITS ---
FINAL REPORT CLINICAL HISTORY: left knee pain COMPARISON: None FINDINGS: LEFT KNEE 3 views of the left knee were obtained. There is no acute fracture or dislocation. Visualized joint spaces are normally aligned. Mild medial compartment joint space narrowing is present. Soft tissues are unremarkable. IMPRESSION: Mild medial compartment joint space narrowing, with no acute bony abnormality. Reviewed, Interpreted and Dictated by Anthony Newman MD Transcribed by Mai Rabago Authenticated and [facility]
== END 2024-12-18 23:59 | disposition home or self-care (01) ==
LOC: RAD 11:38
PROVIDERS: PCP Family Medicine; Visit Provider Physician Assistant
DX: M25.562 Pain in left knee (principal)
CPT/HCPCS: 73562

== ENCOUNTER 2024-12-20 08:27 | Outpatient (CLI) | payer MEDICARE, BC, SELFPAY ==
--- NOTE | 2024-12-20 08:31 | US_ITS ---
FINAL REPORT CLINICAL HISTORY: Cirrhosis COMPARISON: None FINDINGS: Sonographic images of the right upper quadrant were obtained. The pancreas is partially obscured. There is coarsened echotexture of the liver consistent with fatty infiltration. The gallbladder appears normal without evidence of gallstones.There is no evidence of biliary ductal dilatation.The common duct measures 4mm. Limited images of the right kidney are unremarkable. IMPRESSION: Fatty liver. Reviewed, Interpreted and Dictated by Anthony Newman MD Transcribed by June Brooke Authenticated and [facility]
== END 2024-12-20 23:59 | disposition home or self-care (01) ==
LOC: RAD 08:28
PROVIDERS: PCP Family Medicine; Visit Provider Family Medicine
DX: K70.30 Alcoholic cirrhosis of liver without ascites (principal)
CPT/HCPCS: 76705

== ENCOUNTER 2025-05-10 09:17 | Outpatient (CLI) | payer MEDICARE, BC, SELFPAY ==
--- OUTSIDE RECORDS SUMMARY | 2025-05-10 09:21 | XMS_ITS | Data Portability ---
Author Organization [facility] Address [address] [place] [address] Care Team Providers Care House Worker General Name Role Phone RUBINA ZURITA Referring Provider [phone] LUZ MARINA ROMERO Primary Care Provider Assessment No assessment recorded. Plan of Treatment Reminders Order Date Submit Date Provider Last Modified By Organization Details Last Modified Time Details Appointments None record ed. Lab None record ed. Referral None record ed. Procedures None record ed. Surgeries None record ed. Imaging None record ed. Medication Orders None record ed. Patient TargetsNo targets recorded. Patient Instructions Encounter Date Encounter Id Patient Instructions Last Modified By Organization Details Last Modified Time 11/26/2021 [id number] 1. Flex laryngoscopy- full risks, complications, and benefits of in-office procedure have been thoroughly discussed. Understanding was expressed, informed consent given, and we will proceed with the discussed in-office treatment plan. 2. Reviewed vocal hygiene precautions, including vocal rest, saltwater gargles, increased hydration, avoid medications with a drying effect (e.g. antihistamines, diuretics), and utilizing sialogogues 3. Consider therapy if hoarseness does not improve 4. Use saline rinse in her nose frequently 5. 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 Problems No Known Problems Procedures Surgical History Date Name Laterality Status Provider Name and Address Organization Details Recorded Time 11/27/19 22 Laryngoscopy Flex completed Rubina Swartz [facility] 11/26/2021 15:34:57 08/09/19 21 hysterectomy completed Olga Vesjelly [facility] 11/26/2021 14:31:22 08/09/19 10 Eye Surgery completed Olga Vesjelly [facility] 11/26/2021 14:31:12 01/05/19 73 [facility] 14:30:49 Caesarean Section completed Devika Cortesrett [facility] 11/26/2021 14:38:04 hysterectomy completed Devika Varun [facility] 11/26/2021 14:37:44 Other completed Devika Varun [facility] 11/26/2021 14:37:37 Other completed Devika Varun [facility] 11/26/2021 14:37:31 Imaging Results None recorded. Procedure Notes None recorded. Medical Equipment None Reported. Allergies No known drug allergies Medications Name Sig Start Date Stop Date Status Note LastModified by Organization Details LastModified Time ketotifen 0.025 % (0.035 %) eye drops INSTILL 1 DROP IN BOTH EYES TWICE DAILY NEEDED 11/26 completed Not Available Not Available Not Available ondansetron HCl 8 mg tablet TAKE 1 TABLET BY MOUTH THREE TIMES DAILY NEEDED FOR NAUSEA OR VOMITING 11/26 completed Not Available Not Available Not Available montelukast 4 mg chewable tablet CHEW AND SWALLOW 1 TABLET BY MOUTH EVERY EVENING 11/26 completed Not Available Not Available Not Available sulfamethox azole 800 mg-trimetho prim 160 mg tablet TAKE 1 TABLET BY MOUTH EVERY 12 HOURS FOR 10 DAYS 11/26 completed Not Available Not Available Not Available lidocaine-p rilocaine 2.5 %-2.5 % topical cream 11/26 completed Not Available Not Available Not Available levothyroxi ne 25 mcg tablet TAKE 1 TABLET BY MOUTH EVERY DAY active Not Available Not Available No t Available alprazolam 0.5 mg tablet TAKE ONE TABLET BY MOUTH TWICE DAILY NEEDED 11/26 completed Not Available Not Available Not Available potassium chloride ER 20 mEq tablet,exte nded release(par t/cryst) TAKE 1 TABLET BY MOUTH DAILY 11/26 completed Not Available Not Available Not Available cephalexin 500 mg capsule TAKE 2 CAPLETS BY MOUTH EVERY DAY 11/26 completed Not Available Not Available Not Available nystatin 100,000 unit/gram topical cream APPLY TOPICALLY TO THE AFFECTED AREA TWICE DAILY DIRECTED 11/26 completed Not Available Not Available Not Available montelukast 10 mg tablet TAKE 1 TABLET BY MOUTH EVERY EVENING active Not Available Not Available No t Available azelastine 137 mcg (0.1 %) nasal spray USE 2 SPRAYS IN EACH NOSTRIL TWICE DAILY 11/26 completed Not Available Not Available Not Available albuterol sulfate HFA 90 mcg/actuati on aerosol inhaler INHALE 2 TO 4 PUFFS BY MOUTH EVERY 4 TO 6 HOURS NEEDED 11/26 completed Not Available Not Available Not Available doxycycline hyclate 100 mg tablet TAKE 1 TABLET BY MOUTH TWICE DAILY FOR 10 DAYS 11/26 completed Not Available Not Available Not Available spironolact one 50 mg tablet TAKE 1 TABLET BY MOUTH EVERY DAY active Not Available Not Available No t Available Xyzal 5 mg tablet Take 1 tablet every day by oral route. active Not Available Not Available No t Available Osteo Bi-Flex (5-Loxin) active Not Available Not Available No t Available Nasacort 55 mcg nasal spray aerosol INHALE 2 SPRAYS INTO EACH NOSTIL ONCE DAILY active Not Available Not Available No t Available Vitals Date Recorded Body weight Body mass index (BMI) Body height Body temperature Heart rate Systolic And Diastolic Provider Name and Address Organization Details Last Updated DateTime 2 60248.1 4 g 31.2 kg/m2 157.48 cm 96.4 [degF] 120 /min 151/80 mm[Hg] Devika Bond [facility] 14:36:21 Social History Question Answer Notes LastModified by Organizat ion Details LastModified Time Tobacco Smoking Status Former Smoker Devika Bond [facility] 11/26/2021 14:14:02 How Many Years Have You Smoked Tobacco? 20 Information not available 11/26/2021 Sex: Unknown Functional Status Question Answer Note LastModified by Organizat ion Details LastModified Time Do you use any illicit or recreational drugs? No [email or web address] Information not available 11/26/2021 Do you or have you ever used any other forms of tobacco or nicotine? No [email or web address] Information not available 11/26/2021 What is your level of alcohol consumption? Moderate Information not available 11/26/2021 Mental Status None recorded. Family History Relationship Description Onset Age of this Age Resolved Age Notes LastModified by Organization Details LastModified Time Sister Family history of malignant neoplasm throat [email or web address] Not available 2021 14:28:32 Unspecified Relation Hypertensive disorder Not available 14:16:35 Medical History Condition Response Anesthesia Complications N Diabetes N Bleeding Disorder N Cancer Y Hypertension N Gynecological HistoryNo gynecological history recorded. Obstetrics History GPAL:G 0 P 0 0 0 0 Past Encounters Encounter ID Performer Location Encounter Start Date Encounter Closed Date Diagnosis/Indication Diagnosis SNOMED-CT Code Diagnosis ICD10 Code Diagnosis IMO Codes Diagnosis Note [id number] LIAN ISABEL MD [place] [facility] [address] [place] [address] 11/26/2021 14:05:16 11/26/2021 15:47:40 Nasal mucosa dry 10145060 J34.89 Chronic hoarseness 26881 40208 105 R49.0 History of malignant neoplasm of breast 866556513 Z85.3 Vocal nodu les in adults 29032218 J38.2 - bilateral Health Concerns Section Related Observation LastModified by Organization Detai ls LastModified Time None Recorded Concern Status LastModified by Organization Details LastModified Time None Recorded Advance Directives Directive None Recorded Payers Insurance Date Sequence Insurance Name Policy Number Policy Cartwright Covered Member ID Cartwright Member ID Guarantor Name 12/12/2021 1 JESUS MANUEL: [employer] [place] [employer] [place] - [employer] 111 Xiomara Nadine [id number] Xiomara Nadine Notes Date Note Type Note Provider Name and Address Organization Details Recorded Time 11/26/2021 text/html Xiomara is a 66 year old female here today for an evaluation of her throat, referred byChachoard H Deandre MD. She reports that for the last 9 weeks she has had hoarseness. She denies difficulty swallowing or pain. The change in her voice began while she was going through chemotherapy. Her last treatment was October 30. She also has had a dry nose and bloody drainage. LIAN ISABEL MD [address] [place] [address], [phone], [facility] 11/26/2021 16:05:28 OBGyn Episode No OBEpisode recorded.
--- OUTSIDE RECORDS SUMMARY | 2025-05-10 09:21 | XMS_ITS | Encounter Summary ---
Author Organization [facility] Address [address] [place] [id number] Care Team Providers Care Scientist Electronics Name Role Phone Fredi Carrera MD Primary Care Provider Encounter Details Date Type Department Care Team (Late st Contact Info) Description 01/20/2022 MDT Assessment [facility] HEMATOLOGY & ONCOLOGY [address] [facility] [address] [place] [address] Pedro Pablo Baum MD [address] [facility] [address] [place] [address] Social History Tobacco Use Types Packs/Day Years Used Date Smoking Tobacco: Former Cigarettes 0.3 20 1 977 - 1997 Smokeless Tobacco: Never Alcohol Use Standard Drinks/Week Comments Yes 12 (1 standard drink = 0.6 oz pu re alcohol) selzers AUDIT-C Answer Date Recorded Q1: How often do you have a drink containing alcohol? Never 12/16/2021 Q2: How many drinks containi ng alcohol do you have on a typical day when you are drinking? Patient does not drink Q3: How often do you have si x or more drinks on one occasion? Never 12/16/2021 PHQ-2 Answer Date Recorded Retired Total Score 2 07/30/2021 Comments No Sex and Gender Information Value Date Recorded Sex Assigned at Not on file Legal Sex Female 10:37 AM EDT Gender Identity Not on file Sexual Orientation Not on file documented as of this encounter Plan of Treatment Upcoming Encounters Date Type Department Care Team (Late st Contact Info) Description 05/31/2025 11:45 AM EDT Office Visit [facility] HEMATOLOGY & ONCOLOGY [address] [facility] [address] [place] [phone] Rubina Tierney MD [address] [facility] [address] [place] [address] 10/18/2025 10:45 AM EDT Office Visit [facility] GENERAL SURGERY [address] [facility] [address] [place] [phone] Pedro Pablo Baum MD [address] [facility] [address] [place] [address] documented as of this encounter Visit Diagnoses Not on filedocumented in this encounter Care Teams Scientist Electronics Relationship Specialty Start Date End Date Fredi Carrera MD [address] [facility] [address] [place] [id number] PCP - General Family Medicine 07/25/21 documented as of this encounter
--- OUTSIDE RECORDS SUMMARY | 2025-05-10 09:22 | XMS_ITS | Clinical Summary ---
Author Organization [facility] Address [address] [place] [id number] Care Team Providers Care Transmission Superintendent Name Role Phone Fredi Carrera MD Primary Care Provider Allergies Active Allergy Reactions Criticality Noted Date Comments Lisinopril Cough,Other (See Com ments),Unknown (See Comments) Medium 05/16/2014 Dry cough Medications azelastine (ASTELIN) 0.1 % nasal spray 1 spray At Night As Needed. 1 Active levothyroxine (SYNTHROID, LEVOTHROID) 25 MCG tablet Take 1 tablet by mouth Every Morning. 1 Active montelukast (SINGULAIR) 10 MG tablet Take 1 tablet by mouth Every Night. 1 Active spironolactone (ALDACTONE) 50 MG tablet Take 1 tablet by mouth Every Morning. 1 Active ondansetron (ZOFRAN) 8 MG tabletIndicatio ns:Malignant neoplasm of central portion of right breast in female, estrogen receptor negative Take 1 tablet by mouth 3 (Three) Times a Day As Needed for Nausea or Vomiting. 30 tablet 5 1 Active ketotifen (ZADITOR) 0.025 % ophthalmic solution Administer 1 drop to both eyes Daily As Needed. 1 Active Misc Natural Products (Osteo Bi-Flex Adv Double St) tablet Take 2 tablets by mouth Daily. Active Triamcinolone Acetonide (NASACORT) 55 MCG/ACT nasal inhaler Administer 2 sprays into the nostril(s) as directed by provider Every Morning. Active albuterol sulfate HFA 108 (90 Base) MCG/ACT inhaler Inhale 2 puffs Every 6 (Six) Hours As Needed for Wheezing or Shortness of Air. 2 Active levocetirizine (XYZAL) 5 MG tablet Take 1 tablet by mouth Every Evening. Active COLLAGEN PO Take 6 tablets by mouth Daily. 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 4 Active traZODone (DESYREL) 50 MG tabletIndicatio ns:Malignant neoplasm of central portion of right breast in female, estrogen receptor negative TAKE 1 TABLET BY MOUTH EVERY NIGHT 1 HOUR BEFORE BEDTIME 30 tablet 5 5 Active Active Problems Patient Care Coordination No te Formatting of this note migh t be different from the original. Problem Noted Date Diagnosed Date History of right breast cancer 01/19/2023 Malignant neoplasm of upper- outer quadrant of right female breast 12/16/2021 Malignant neoplasm of right breast in female, estrogen receptor negative 07/23/2021 Cancer Staging:Clinical:Stage IIA(cT2, cN0, cM0, G3, ER-, MA-, HER2+) - Signed by Rubina Tierney MD on 07/23/2021 Immunizations Immunization Administration Dates Next Due COVID-19 (MODERNA) 1st,2nd,3rd Dose Monovalent 0 09/01/2021,07/30/2021 Fluzone >6mos 05/28/2014 Pneumococcal Polysaccharide (PPSV23) 05/28/2014 Shingrix 02/01/2023 Family History Medical History Relation Name Comments Breast cancer Neg Hx Ovarian cancer Neg Hx Social History Tobacco Use Types Packs/Day Years Used Date Smoking Tobacco: Former Cigarettes 0.3 20 1 977 - 1996 Passive Smoke Exposure: Never Smokeless Tobacco: Never Tobacco Cessation:Counseling Given: Not Answered Alcohol Use Standard Drinks/Week Comments Not Currently 0 (1 standard drink = 0.6 oz pur e alcohol) AUDIT-C Answer Date Recorded Q1: How often do you have a drink containing alcohol? Never 01/19/2023 Q2: How many drinks containi ng alcohol do you have on a typical day when you are drinking? Patient does not drink Q3: How often do you have si x or more drinks on one occasion? Never 01/19/2023 PHQ-2 Answer Date Recorded Retired PHQ-9: Brief Depression Severity Measure Score 0 10/22/2022 Abuse Screen Answer Date Recorded Feels Unsafe at Home or Work/School no 01/19/2023 Feels Threatened by Someone no 01/07 Does Anyone Try to Keep You From Having Contact with Others or Doing Things Outside Your Home? no 01/19/2023 Physical Signs of Abuse Present no 01/19/2023 Housing Stability Answer Date Recorded Current Living Arrangements home 01/07 Potentially Unsafe Housing Conditions Not on kaye e 01/19/2023 Disabilities Answer Date Recorded Difficulty Concentrating, Remembering or Making Decisions no 01/19/2023 Difficulty Managing Errands Independently no 01/19/2023 Education Answer Date Recorded Help with school or training? Not on file Preferred Language Palestinian 01/15/2023 PHQ-2 Answer Date Recorded Patient Health Questionnaire-2 Score 0 12/01/2024 Comments No Sex and Gender Information Value Date Recorded Sex Assigned at Not on file Legal Sex Female 10:37 AM EDT Gender Identity Not on file Sexual Orientation Not on file Last Filed Vital Signs Vital Sign Reading Time Taken Comments Blood Pressure 135/65 12/01/2024 1:04 PM EDT LUE Pulse 72 12/01/2024 1:04 PM EDT Temperature 36.3 C (97.4 F) 12/01/2024 1:04 PM EDT Respiratory Rate 20 12/01/2024 1:04 PM EDT Oxygen Saturation 97% 12/01/2024 1:04 PM EDT RA Inhaled Oxygen Concentration - - Weight 88 kg (194 lb) 12/01/2024 1:04 PM EDT Height 157.5 cm (5' 2 ) 12/01/2024 1:04 PM EDT Body Mass Index 35.48 12/01/2024 1:04 PM EDT Plan of Treatment Upcoming Encounters Date Type Department Care Team (Late st Contact Info) Description 05/31/2025 11:45 AM EDT Office Visit [facility]AT[facility]Y [address] [facility] [address] [place] [address] Rubina Tierney MD [address] [facility] [address] [place] [address] 10/18/2025 10:45 AM EDT Office Visit [facility] GENERAL SURGERY [address] [facility] [address] [place] [id number] Pedro Pablo Baum MD [address] [facility] [address] [place], [place] [id number] Health Maintenance Due Date Last Done Comments DXA SCAN 1957 TDAP/TD VACCINES (1 - Tdap) 02/22/1976 COLOGUARD 2002 COLON CANCER SCREENING 5 YEA R SIGMOIDOSCOPY 2002 CT COLONOGRAPHY 2002 FECAL OCCULT BLOOD TEST 2002 FIT Testing (1 year) 2002 Pneumococcal Vaccine 50+ (2 of 2 - PCV) 05/28/2015 05/28/2014 Hepatitis B (1 of 3 - Risk 3 -dose series) 2017 ANNUAL WELLNESS VISIT 07/14/2021 HEPATITIS C SCREENING 07/14/2021 OT PLAN OF CARE 10/16/2021 07/18/2021 ZOSTER VACCINE (2 of 2) 03/29/2023 02/01/2023 COLONOSCOPY 08/29/2024 08/29/2014, 08/29/2014 COLORECTAL CANCER SCREENING 08/29/2024 INFLUENZA VACCINE 03/09/2025 05/28/2014 COVID-19 Vaccine (3 - 2024-2 6 season) 2025 09/01/2021, 07/30/2021 MAMMOGRAM Discontinued 08/05/2021, 07/09, 07/21/2021, Additional history exists Procedures Procedure Name Priority Date/Time Associated Diagnosis Comments MAMMO DIAGNOSTIC DIGITAL TOMOSYNTHESIS RIGHT W CAD Routine 08/05/2021 1:27 PM EST Malignant neoplasm of upper-outer quadrant of right female breast from Last 3 Months or Most Recently Relevant to Health Maintenance Results * (ABNORMAL) Mammo Diagnostic Digital Tomosynthesis Right With CAD (08/05/2021 1:27 PM EST) Anatomical Region Laterality Modality Breast Right Mammography 08/06/2021 2:55 PM EST Impressions 08/06/2021 4:20 PM EST 1. The biopsy-proven carcinoma is noted in the right breast as described above. There are 2 clusters of calcifications in the right breast one of which appears to be associated with the biopsy-proven carcinoma. There is a second cluster however that is located 1.5 cm posterior and 1.7 cm inferior to the mass. The patient is considering breast conservation then stereotactic core biopsy of these calcifications is recommended. The patient states she is planning to undergo a bilateral mastectomy however. 2. There are 2 lymph nodes in the right axillary region measuring 1.6 and 1.2 cm respectively as described above which demonstrate areas of cortical thickening and will undergo ultrasound-guided fine-needle aspiration with clip placement. 3. No ultrasound correlate is seen to the indeterminate enhancement noted in the left upper inner quadrant. Similarly if the patient does not undergo a bilateral mastectomy then an MR-guided core biopsy of this finding is recommended. RECOMMENDATION: Recommend follow-up with Dr Baum for further management. The patient did undergo recent recent placement of a portacatheter and will be starting preoperative chemotherapy in the near future. The patient states she plans to ultimately undergo bilateral mastectomies and therefore no additional biopsies will be performed rather than ultrasound-guided fine-needle aspiration biopsy of 2 adjacent indeterminate right axillary lymph nodes with clip placement. ACR BI-RADS CATEGORY 6, KNOWN BIOPSY-PROVEN MALIGNANCY. CAD was utilized. The standard false-negative rate of mammography is between 10% and 25%. Complex patterns or increased breast density will markedly elevate the false-negative rate of mammography. A letter, in lay terminology, with the results of this exam was given to the patient at the time of the visit. At our facility, a triangular marker is positioned over a palpable area of concern indicated by the patient. A little river marker is placed over a visible skin lesion. A linear marker indicates a scar. DICTATED: 08/06/2021 EDITED/lfs: 08/06/2021 This report was finalized on 08/06/2021 4:[address] Meseret Moore MD. Narrative 08/06/2021 4:20 PM EST RIGHT DIAGNOSTIC MAMMOGRAM WITH TOMOSYNTHESIS AND A FOCUSED BILATERAL BREAST ULTRASOUND CLINICAL INDICATION: 66-year-old patient recalled for additional imaging evaluation bilaterally. The patient underwent ultrasound-guided core biopsy of a mass in the right 10:00 region on 07/02/2021 with pathology revealing an invasive ductal adenocarcinoma. She is also status post ultrasound-guided core biopsy of a mass in the 6:00 region of the right breast. Pathology for that was suggestive of an epidermal inclusion cyst. The patient was also noted to have 2 separate clusters of calcifications in the right breast. One is located in association with the 10:00 mass in the right upper outer quadrant along its medial and superior extent. The second cluster was located slightly lateral as well at 1.5 cm inferior to the mass on the right breast. She underwent subsequent breast MRI which revealed findings of the right breast consistent with the known biopsy-proven carcinoma as well is a biopsied epidermal inclusion cyst. She was noted to have questionable enlarged right axillary lymph nodes as well as a small indeterminate focus of contrast enhancement in the left upper inner quadrant for which additional imaging evaluation is recommended. TECHNIQUE: Routine digital CC and ML views of the right breast were performed with Tomosynthesis. Also, right CC and ML magnification views were performed. Finally, focused ultrasound imaging of the right axillary region as well as the left upper inner quadrant was performed. COMPARISON: Comparison is made to prior mammograms performed on 06/19/2021 and 04/30/2017 as well as a breast ultrasound from 06/19/2021. Comparison is also made to the recent breast MRI from 07/31/2021. FINDINGS: The right breast is heterogeneously dense, which may obscure small masses. There is an ill-defined mass with an associated core biopsy marking clip noted in the right 9-10:00 region. This mass is best seen on the tomographic views where measures up to 3 cm in size. This represents the patient's biopsy-proven invasive ductal carcinoma. Along the medial and superior extent of the mass are some grouped mildly pleomorphic punctate calcifications which span over 0.5 cm of tissue. Located in the upper outer quadrant is a second cluster of punctate and amorphous calcifications which are located approximately 2 cm posterior and 1.7 cm inferior to the biopsy-proven carcinoma. These calcifications span over approximately 0.8 cm of tissue. There are some vascular calcifications present in the right breast but no additional concerning calcifications are seen. The mass which was biopsied in the 6:00 inframammary fold region was not included on the film given its posterior location. Also, the axillary region was not imaged. Ultrasound imaging of the right axillary region was performed. This does demonstrate several lymph nodes which do contain some areas of cortical thickening. This includes a 1.6 cm lymph node which is felt to possibly correlate to a lymph node that was noted to be slightly enlarged on the patient's mammogram from 06/19/2021. There is an adjacent lymph node measuring 1.2 cm in size which does not definitely display a central hilar region. Ultrasound imaging of the upper inner quadrant of the left breast demonstrates a few small cysts all measuring less less than 1 cm in size. However, no solid masses or abnormal areas of shadowing are seen and there is no ultrasound correlate to the indeterminate nonmasslike enhancement in the left upper inner quadrant. us Meseret Moore MD IMG MAMMOGRAPHY ORDERABLES Fin al Result from Last 3 Months or Most Recently Relevant to Health Maintenance Insurance [facility] Member Subscriber Plan / Payer (Ef fective 2017-Present) Name:Xiomara Mccoy Relation to Subscriber:Self Name:Xiomara Mccoy Payer ID:[id number] (NAIC) Group ID:[id number] Type:Not on file Address: [facility] [id number] [place] [id number] MEDICARE A & B Advance Directives * CPR (Attempt to Resuscitate) (Latest Code Status on File) Date Activated Date Inactivated Comments 01/19/2023 5:10 PM 01/20/2023 12:41 PM Question Answer Comments Code Status (Patient has no pulse and is not breathing): CPR (Attempt to Resuscitate) Medical Interventions (Patie nt has pulse or is breathing): Full Support Release to patient: Routine Release * CPR (Attempt to Resuscitate) Date Activated Date Inactivated Comments 12/16/2021 2:32 PM 12/17/2021 2:20 PM Question Answer Comments Code Status (Patient has no pulse and is not breathing): CPR (Attempt to Resuscitate) Medical Interventions (Patie nt has pulse or is breathing): Full Support Care Teams Transmission Superintendent Relationship Specialty Start Date End Date Fredi Carrera MD [facility] [address] [facility] [address] [place] [id number] PCP - General Family Medicine 07/25/21
--- OUTSIDE RECORDS SUMMARY | 2025-05-10 09:22 | XMS_ITS ---
Author Organization [facility] Address [address] [place] [id number] Care Team Providers Care Screw Machine Hand Name Role Phone Fredi Carrera MD Primary Care Provider Active Problems Patient Care Coordination No te Formatting of this note migh t be different from the original. Problem Noted Date Diagnosed Date History of right breast cancer 01/19/2023 Malignant neoplasm of upper- outer quadrant of right female breast 12/16/2021 Malignant neoplasm of right breast in female, estrogen receptor negative 07/23/2021 Cancer Staging:Clinical:Stage IIA(cT2, cN0, cM0, G3, ER-, MS-, HER2+) - Signed by Rubina Tierney MD on 07/23/2021 Current Treatment and Therapy Plans No current plan information found. Past Treatment and Therapy Plans ONCOLOGY RESEARCH Plan Name Start Date Discontinue Date Treatment Medications Discontinue Reason Plan Provider Cycles RESEARCH BREAST [id number] Post-Surgery Trastuzumab + Pertuzumab 2 02/12/2023 pertuzumab (PERJETA) chemo IVPB Therapy Complete Rubina Tierney MD 13 of 13 cycles started RESEARCH BREAST [id number] PACLitaxel (Weekly) + Trastuzumab + Pertuzumab 08/14/2021 11/04/2021 PACLItaxel (TAXOL) chemo IVPB 250 mLpertuzumab (PERJETA) chemo IVPB Therapy Complete Rubina Tierney MD 4 of 4 cycles started Therapy Plan 1 - Infusion Treatment Plan Name Start Date Discontinue Date Treatment Medications Discontinue Reason Plan Provider OP CENTRAL VENOUS ACCESS DEVICE ACCESS, CARE, AND MAINTENANCE (CVAD) 08/14/2021 02/12/2023 No medications scheduled. Therapy Complete Rubina Tierney MD Treatment Summaries Malignant neoplasm of right breast in female, estrogen receptor negative* Images from the original note were not included. Breast Cancer Survivorship Plan General Information Patient name Xiomara Mccoy Date of 1955 Phone Email [email or web address] Cancer Treatment Team Patient Care Team: Pedro Pablo Baum MD as Consulting Physician (General Surgery) Rubina Tierney MD as Consulting Physician (Hematology and Oncology) Gauri Abebe APRN as Nurse Practitioner (Oncology) Provider Phone numbers Care Team Provider: Gauri Abebe APRN, ([phone]) Care Team Provider: Pedro Pablo Baum MD, ([phone]) Care Team Provider: Rubina Tierney MD, ([phone]) Post Treatment Care Team Primary Care Physician Fredi Carrera MD [facility] [address] [place] [id number] Background Information Medical history Past Medical History: Allergy to environmental factors Asthma Breast cancer Right Disease of thyroid gland Full dentures Wears glasses Surgical history Past Surgical History: BREAST BIOPSY BREAST CYST ASPIRATION COLONOSCOPY COMPLETE MASTECTOMY W/ SENTINEL NODE BIOPSY HYSTERECTOMY MASTECTOMY Procedure: PROPHYLACTIC LEFT SKIN-SPARING BREAST MASTECTOMY; Surgeon: Pedro Pablo Najera MD; Location: [facility]; Service: General; Laterality: Left; MASTECTOMY W/ SENTINEL NODE BIOPSY Procedure: SKIN SPARING BREAST MASTECTOMY WITH RIGHT SENTINEL NODE BIOPSY; Surgeon: Pedro Pablo Baum MD; Location: [facility]; Service: General; Laterality: Bilateral; OOPHORECTOMY Tobacco use Social History Tobacco Use Smoking Status Former Packs/day: 0.25 Years: 20.00 Pack years: 5.00 Types: Cigarettes Quit date: 1996 Years since quittin.5 Passive exposure: Never Smokeless Tobacco Never Family oncology history Cancer-related family history is negative for Breast cancer and Ovarian cancer. Oncology Information Oncology/Hematology History Malignant neoplasm of right breast in female, estrogen receptor negative 07/02/2021 Biopsy Right breast 07/23/2021 Initial Diagnosis Malignant neoplasm of right breast in female, estrogen receptor negative (HCC) 07/23/2021 Cancer Staged Staging form: Breast, AJCC 8th Edition - Clinical: Stage IIA (cT2, cN0, cM0, G3, ER-, MS-, HER2+) - Signed by Rubina Tierney MD on 07/23/2021 08/14/2021 - 10/30/2021 Chemotherapy RESEARCH BREAST [id number] PACLitaxel (Weekly) + Trastuzumab + Pertuzumab 08/14/2021 - Chemotherapy OP CENTRAL VENOUS ACCESS DEVICE ACCESS, CARE, AND MAINTENANCE (CVAD) 11/06/2021 - Chemotherapy RESEARCH BREAST [id number] Post-Surgery Trastuzumab + Pertuzumab 12/16/2021 Surgery Surgery Procedure: Mastectomy Location: right breast Completeness of resection: No evidence of residual tumor 01/19/2023 Surgery Surgery Procedure: Prophylactic Mastectomy Location: left breast Complications during Therapy: Neutropenia without Fever Modification to Treatment Plan: Dose Reduction Lifetime Dose Tracking No doses have been documented on this patient for the following tracked chemicals: Doxorubicin, Epirubicin, Idarubicin, Daunorubicin, Mitoxantrone, Bleomycin, Mitomycin, Doxorubicin Liposomal Treatment Summary Treatment goal [No plan goal] Plan Name OP CENTRAL VENOUS ACCESS DEVICE ACCESS, CARE, AND MAINTENANCE (CVAD) Status Active Start Date 08/14/2021 End Date Until discontinued Provider Rubina Tierney MD Chemotherapy [No matching medication found in this treatment plan] Response to treatment Persistent Treatment-Associated Adverse Effects at Completion of Therapy It is important to recognize that not every person experiences the following adverse events after treatment. You may not have any of these issues, a few or many adverse effects. Experiences are highly variable. Please discuss any adverse effects of cancer treatment with your cancer care team. After Surgical Therapy Mastectomy Mastectomy involves the removal of the entire breast. After surgery, there may be pain and sorenessin the chest, underarm or shoulder which should get better over time. Nerves may be damaged along surgical scars on the chest and areas of lymph node removal which may result in numbness and other changes in sensation. Care and attention to wound healing after surgery is important. Healing can be affected by things like smoking, diabetes and other factors. Ask your doctor or nurse if you have issues with pain, numbness or tingling, or any changes in function or mobility. How you think and feel about your body is important and coping with changes after mastectomy takes time. It???s important to look at your scar and your chest. It???s important to touch your scar, too. Your physician may give you instructions about massaging the scar to help with healing and to soften scar tissue. If you have a partner, let your partner look at your chest and feel the scar when you???re ready. If you do not have breast reconstruction, you can wear a breast prosthesis to give theappearance of a natural breast in clothing. Prostheses can differ in material, weight and form and can be worn in a bra or attached to the chest. Your doctor can tell you when the time is right to be fitted for a prosthesis and you may need a special bra to wear with it. Some insurance companies cover the cost. Ask your healthcare providers for a list of resources and about help with insurance coverage. Some women choose to wear a breast prosthesis at times and to not wear one at other times oreven not at all. Working through feelings about the cancer and changes as a result of surgery may take time and support. Talk with your doctor or nurse about any issues with body image and coping andask for a list of resources for bras and prostheses. Survivors of breast cancer should speak with their health care provider regarding the possibility of a genetic or family syndrome. If there does appear to be a family history or possible genetic syndrome, genetic counseling and testing may be recommended. After Chemotherapy Chemotherapy travels throughout the body and can affect both cancer cells and normal, healthy cells. Damage to healthy cells can cause side effects. Every person doesn't get every side effect, and some people get few, if any. Many side effects go away fairly quickly after treatment ends, but some may take months or even years to completely go away. The time it takes to get over some side effects and get your energy back varies from person to person. It depends on many factors; including your overall health and the drugsyou were given. Some side effects can last a lifetime, such as when chemo causes long-term damage to the heart, lungs, kidneys, or reproductive organs. Certain types of chemo sometimes cause delayed effects, such as a second cancers that may show up many years later. Ask your doctor or nurse if youneed more information. After Radiation Therapy No radiation treatments received. Hormone Therapy Not receiving hormone therapy Care of your Venous Access Device Your Implanted Port will need to be flushed every 4 weeks when not being used. Flushing your deviceneeds to be done by a specially trained nurse. If your device is properly maintained, it can stay in place for as long as your doctor feels you need it. General After Cancer Treatment It is not uncommon for cancer to impact other areas of your life such as relationships, work and mental health. If you develop financial concerns, resources are sometimes available to assist in theseareas. Depression and anxiety can present either during or after cancer diagnosis and treatment. Itis important to discuss with your physician any of these concerns so these resources can be made available to you. General Cancer Support & Resources [facility] [address], [address] [place] [address] Med Onc: Echocardiographer Onc: Manager Multicultural: Olga Hancock- Psychiatric Nurse Practitioner: Destiny Bunch APRN - [phone] Kick It! (A free smoking cessation program) Financial Counselor and Contact Information: [facility] Financial Counseling - Field Service Poultry Technician Contact Information: Marleni Uriostegui - [phone] Wound Ostomy & Continence Nurse: Local Cancer Support Group and Contact Information: Look Good Feel Better: A non-medical, brand-neutral public service program that teaches beauty techniques to people with cancer to help them manage the appearance-related side effects of cancer treatment. The program includes lessons on skin and nail care, cosmetics, wigs and turbans, accessories and styling, helping people with cancer to find some normalcy in a life. - See more at: http://lookgoodfeelbetter.org Journey Toward Empowerment - for Women with Cancer: ([facility]) The Tools and encouragement you need to live your life to the fullest. Free Dinner served @ 6:00pm followed by speaker from 6:30 - 7:30pm. The series runs from May, and meets monthly. Call Kimmy Bianchi RN, OCN @ to receive information and upcoming schedule. [place] [facility]: This support group is open to anyone that has been diagnosed with cancer of any type. Meets at 6:30pm on the last Wednesday of each month. Location: [facility]; [address] [place] [address]. For more information call Kalli Lu @ . Breast Cancer Support & Resources Local Cancer Support Groups and Contact Information: [employer] ([place]): Breast Cancer Support group. Meets the Wednesday of each month at various locations. Please Call Edison Bal for meeting information @ [phone] or Sasha Villalobos @ [phone]. The Journey: Breast Cancer Support Ministry: Meets the Wednesday of each month, 5:00PM @ [place], [place]. Please call Destiny Barber at [phone] for additional information. Reach To Recovery: An [place] [employer] peer support group for women with a concern about breast cancer. Patentscan talk with volunteer breast cancer survivors, in person or over the phone, for support & encouragement. Also, after you have completed your journey and would like to give back, you can call the [phone] number to volunteer as a survivor and support to others. For additional information, please call [phone] or go to sss.cancer.org. Surveillance How Frequent? Medical Oncology visits 1 - 4 times per year as clinically appropriate for 5 years, then annually Lab tests With each oncology visit Lymphedema Monitor for lymphedema Genetic Counseling Periodic screening for changes in family history and referral to genetic counseling as indicated Immunizations Influenza Herpes Zoster Pneumococcal Yearly Once As appropriate Tobacco Cessation The patient is not currently a tobacco user. Counseling given: Not Answered Monitor for ongoing toxicities: None Specified Call your doctor if you have any of these signs or symptoms New or worsening symptoms. Pain that is new, unrelieved or bothersome. Difficulty with your emotions, anxiety, and/or depression. Physical problems that affect your abilities in your daily life or those that are bothersome (for example, continued fatigue, trouble sleeping, sexual problems, or edema). Referrals provided There are no referral needs at this time. Self Care Plan Self Care Plan: What You Can Do to Stay Healthy after Treatment for Cancer Cancer treatments may increase your chance of developing other health problems years after you havecompleted treatment. The purpose of this self care plan is to inform you about what steps you can take to maintain good health after cancer treatment. Keep in mind that every person treated for cancer is different and that these recommendations are not intended to be a substitute for the advice of a doctor or other health home care coordinator. Please use these recommendations to talk with your health care provider about an appropriate follow up care plan for you. Surveillance for Your Cancer Recommendation Frequency Comments Cancer surveillance visit with medical provider that is focused on detecting signs of recurrence ofyour cancer. For additional information, visit www.liveshoccerg.org or www.cancer.net/patient/Survivorship Frequency depends on type and stage of cancer you had. (If you had a higher risk cancer, you may be seen more often). Your doctor has provided you with a personalized cancer treatment summary and survivorship care plan. If you need another copy, ask your doctor. General Cancer Screening for Women Cancer screening tests are designed to find cancer or pre-cancerous areas before there are any symptoms and, generally, when treatments are most successful. Various organizations have developed guidelines for cancer screening for women. While these guidelines vary slightly between different organizations, they cover the same basic screening tests for breast, cervical and colorectal cancers. In addition, during routine health examinations (at any age) your health care provider may also evaluate for cancers of the skin, mouth and thyroid. Not all screening tests are right for everyone. Your personal and family cancer history, and/or the presence of a known genetic predisposition, can affect which tests are right for you, and at what age you begin them. Therefore, you should discuss these with your health care provider. Your care plan will also include a section on follow up care foryour type of cancer, and these recommendations override the general screening recommendations for that particular type of cancer in the general population. The [place] [employer] (ACS) recommends these screening guidelines for women: Recommendation Frequency Comments Breast Cancer Screening For more information, see the ACS document Breast Cancer: Early Detection. www.cancer.org/ssLINK/wuzcem-bfjzdf-wdxet-detection-alpesh Yearly mammograms starting at age 40, and continuing for as long as a woman is in good health. Clinical breast exam (CBE), performed by a health home care coordinator, every three years for women intheir 20s and 30s, and every year for women 40 and over. A monthly breast self-exam (BSE) is a good way to monitor breast health. Women should know how their breasts normally look and feel, and report any change promptly to their health care provider. The ACS recommends that some women - because of their family history, a genetic tendency, or certain other factors - be screened with Magnetic Resonance Imaging (MRI) in addition to mammograms. The numberof women who fall into this category is small (less than 2 percent of all [place] women). Talk with your doctor about your personal history and whether you should have additional tests at an earlier age. Colon and Rectal Cancer Screening For more information see the ACS document Colorectal Cancer: Early Detection. www.cancer.org/ssLINK/ryjqbhzkgm-ypoobm-uumva-detection-alpesh Options for colon cancer screening can be divided into those that screen for both cancer and polyps, and those that just screen for cancer.Screening should begin at age 45 (unless you are considered high risk (see comments), using one of the following testing schedules: Tests that find polyps and cancer (Preferred over those that find cancer alone. If any of these tests are positive, a colonoscopy should be done.) Flexible sigmoidoscopy every five years, or Colonoscopy every 10 years, or Double-contrast barium enema every five years, or CT colonography (virtual colonoscopy) every five years Tests that primarily test for cancer Yearly fecal occult blood test (FOBT)*, or Yearly fecal immunochemical test (FIT) *, or Stool DNA test (sDNA), interval uncertain* * The multiple stool take-home test should be used. One test done by the doctor in the office is not adequate. A colonoscopy should be done if the test is positive. Talk with your doctor about your medical history, and what colorectal cancer screening test and schedule is best for you. Individuals at higher risk of colon cancer should have screening earlier and potentially more frequently. Those at higher risk of colon and rectal cancer: Individuals with a family history of colon or rectal cancer in a relative who was diagnosed before the age of 60 Individuals with a history of polyps Individuals with inflammatory bowel disease (Crohn's disease or ulcerative colitis) Individuals with a genetic predisposition to colon or rectal cancer, such as hereditary non-polyposis colon cancer (HNPCC) syndrome or familial adenomatous polyposis (FAP) syndrome Cervical Cancer Screening For more information see the ACS document Cervical Cancer: Early Detection. www.cancer.org/.../gpdbfspw-xzkttk-pdfcsawmif-roq-yfllp-hpxlldlri-alpesh Cervical cancer screening should not begin before age 21. Screening Pap tests should be performed every three years between age 21 and 29 Women age 30 or older should be screened every 3 years with a Pap test or every five years with a combined Pap/Human Papillomavirus (HPV) test. Women 65 years of age or older who have had negative consecutive screening in the preceding 10 years should discontinue screening. Women who have had a total hysterectomy (removal of the uterus and cervix) should also stop having Pap tests, unless the surgery was done as a treatment for cervical cancer or pre-cancer. Women who have had a hysterectomy without removal of the cervix should continue to have Pap tests. Women who have had a history of a serious cervical precancer should continue screening for at least20 years, even if that extends screening past age 65. Women who have been vaccinated against HPV should still follow these screening guidelines. Treatment for most gynecological cancers involves hysterectomy and alters recommendations for Pap tests. Refer to your personalized cancer treatment summary and survivorship care plan to see what the Pap test recommendations are for you. If you need another copy of your care plan, please ask your doctor. Sun Exposure and Skin Cancer Risk Skin cancer is the most commonly diagnosed type of cancer, and rates are on the rise. However, thisis one cancer that in most cases can be prevented or detected early. While you may hear that you need the sun to make vitamin D, in reality you only need a few minutes a day to do this. Exposure to ultraviolet (UV) rays, either by natural sunlight or tanning beds, can lead to skin cancer. In additio n, UV rays lead to other forms of skin damage, including wrinkles, loss of skin elasticity, dark patches (sometimes called age spots or liver spots), and pre- cancerous skin changes (such as dry, scaly, rough patches). Although dark- skinned people are less likely to develop skin cancer, they can anddo develop skin cancers, most often in areas that are not exposed to sun (on the soles of the feet,under nails, and genitals). You can do a lot to protect yourself from damaging UV rays and to detect skin cancer early. Start by practicing sun safety, including using a broad spectrum sunscreen (which protects against UVA and UVB rays) with an SPF of at least 30 every day, avoiding peak sun times (10 a.m. to 4 p.m., when therays are strongest) and wearing protective clothing such as hats, sunglasses and long- sleeved shirts. Examine your skin regularly so you become familiar with any moles or birthmarks. If a mole has changed in any way, you should have a health care provider examine the area. This includes a change in size, shape or color; the development of scaliness, bleeding, oozing, itchiness or pain; or the development of a sore that will not heal. If you have a lot of moles, it may be helpful to make note of moles using photographs or a mole map . For a guide to performing a skin exam, visit www.skincarephysicians.com/skincancernet/skin_examinations.html. Healthy Lifestyle For some cancer survivors, the experience is the motivation to making healthy lifestyle changes. Itmay seem insignificant, but these changes have been shown to reduce the risk of the cancer coming back or a new cancer developing. Below are some tips on adopting a healthier lifestyle. Maintaining ahealthy weight is important in cancer prevention, as is physical activity and eating a healthy diet. Strive to incorporate all three pieces of the puzzle: healthy weight, balanced diet and regular exercise. Recommendation Goal Comments Maintain a healthy weight. For more information, visit http://www.nhlbi.nih.gov/health/public/heart/obesity/lose_wt/index.htm www.win.niddk.nih.gov Call the [place] [employer] Talk to your health care team about what a healthy weight is for you, and take stepsto reach and maintain that weight. For many people reaching their ideal weight can be a challenge; however, losing even 5 to 10 poundscan lower blood pressure, blood sugar and cholesterol levels. Weigh yourself weekly to monitor for weight gain/loss Being overweight can increase your chance of your cancer coming back. Maintaining a healthy weight, physical activity and eating a healthy diet are all important in cancer prevention. Being overweight can increase your chance of having high blood pressure, high blood sugar and/or high cholesterol, which can lead to heart disease, diabetes and stroke. If you would like more information about your blood sugar, cholesterol or blood pressure, talk with your primary care provider. Eat a healthy diet, mostly from plant sources. For more information, visit http://www.TRAN.SLplate.gov/food-groups/ Eat healthy, including plenty of fruits and vegetables daily. Drink more water, less soda and juice. Limit how much alcohol you drink (if you drink at all). Strive to have two- thirds of your plate be vegetables, fruits, whole grains and beans, while one- third or less should be an animal product. Choose fish and chicken and limit red meat and processed meats. Limit intake of alcohol to two drinks per day. Exercise. To learn more about recommendations for diet, activity and weight, visit AICR???s Guidelines for Survivors http://preventcancer.aicr.org/site/PageServer?pagename=patients_survivors_guidel tab ACS Eat Healthy and Get Active www.cancer.org/Healthy/EatHealthyGetActive/index Experts recommend at least 30 minutes of yoeegmrv-vl-npfwftwu activity per day, five days a week. Research shows that exercise can help you control your weight, improve your energy level, and help you sleep at night. The shelton is to find a physical activity you enjoy such as walking, dancing or gardening and do it regularly. If you have been inactivefor a while, start out slowly. You can start out by exercising 10 minutes a day several days a week. If you feel dizzy, short of breath, or have chest pain during exercise, stop exercising and talk with your primary care doctor. Do not use tobacco in any form. For more information, visit http://www.cdc.gov/tobacco/campaign/tips/ If you use tobacco, quit as soon as possible. Smoking is the most preventable cause of in the [place] If you would like more information, ask your doctor or you can call a national hotline at 3(378)-QUIT-NOW. Keep your bones healthy. For more information, visit www.niams.nih.gov/Health.../Bone/Bone_Health/bone_health_for_life For the FRAX (Fracture Risk Assessment) tool, visit: www.shef.ac.uk/FRAX/ , to estimate 10-year risks for fractures Ask your primary care provider aboutscreening for osteoporosis beginning at age 65 or at a younger age if your bone fracture risk is increased. The 10-year risk for osteoporotic fractures can be calculated for individuals by using the FRAX tool and could help to guide screening decisions for women younger than 65 years. Maximize your bone health by eating healthy, getting enough calcium and vitamin D, and exercising regularly. Certain cancer treatments, such as chemotherapy or hormonal therapy, can cause bone loss. In addition, after menopause, women can lose up to 20 percent of their bone density. The good news is that women can maximize their bone density by eating healthy, getting enough calcium and vitamin D, and exercising regularly. Age (years) Calcium per day Vitamin D per day 19 to 49 1000 milligrams 600 units 50 or over 1200 milligrams 800 units Have regular check-ups by a healthcare professional. For more information about healthy screening tests for men visit the [place] Department of Health and Human Services. http://www.womenshealth.gov/dfrrrbbom-vytpf-ccq-vaccines/bsybnufem-zyxou-gnq-men / For more information about adult vaccinations visit the CDC: http://www.cdc.gov/vaccines/recs/schedules/adult-schedule.htm Keep up-to-date on general health screening tests, including cholesterol, blood pressure and glucose (blood sugar) levels. Get an annual influenza vaccine (flu shot). Get vaccinated with the pneumococcal vaccine, which prevents a type of pneumonia, and re-vaccinatedas determined by your health care team. Don???t forget dental and eye health! The [employer] recommends adults have their eyes examined every two years until age 60, then annually. People who wear glasses or correctivelenses or are at high risk for eye problems (i.e., diabetics, family history of eye disease) shouldbe seen more frequently. The [employer] recommends adults see their dentist at least once a year. 11 No information on file. No information on file.
--- NOTE | 2025-05-10 09:24 | XR_ITS ---
FINAL REPORT TECHNIQUE: Bone densitometry calculations of the lumbar spine and bilateral hips were obtained. CLINICAL HISTORY: SCREENING COMPARISON: None FINDINGS: Using L1-4, the bone mineral density of the spine is 0.946 g/cm2, corresponding to T-score of -0.9. Using the left hip, the bone mineral density of the femoral neck is 0.834 g/cm2, corresponding to a T-score of -0.9. Using the right hip, the bone mineral density of the femoral neck is 0.737 g/cm?, corresponding to a T-score of -1.0. NOTE: T-score: Standard deviation compared with peak bone mass of young adult mean. *Following the recommendations of the International Society of Bone densitometry, classification of hip BMD is based on the lower of two T-scores; total hip or femoral neck. IMPRESSION: Diminished bone mineral density of the left hip consistent with osteopenia. Normal bone mineral density of the right hip and lumbar spine. Reviewed, Interpreted and Dictated by Anthony Newman MD Transcribed by Mai Rabago Authenticated and [facility]
== END 2025-05-10 23:59 | disposition home or self-care (01) ==
LOC: RAD 09:19
PROVIDERS: PCP Family Medicine; Visit Provider Family Medicine
DX: M81.0 Age-related osteoporosis without current pathological fracture (principal); R93.7 Abnormal findings on diagnostic imaging of other parts of musculoskeletal system; Z78.0 Asymptomatic menopausal state
CPT/HCPCS: 77080